=== PATIENT | male | born 1940 | race Caucasian/White ===

== ENCOUNTER 2017-06-07 21:00 | Emergency (ER) | payer MEDICARE, BC ==
[2017-06-07] MEDS ORDERED: traMADol 50 MG Tab ONE (21:30)
[2017-06-08 02:13] VITALS: BP 176/54
--- NOTE | 2017-06-08 07:14 | EDM.PDOC ---
ED HPI GENERAL MEDICAL PROBLEM - General Chief Complaint: ENT Problem Stated Complaint: BLEEDING FRON EXTRACTION Time Seen by Provider: 06/07/17 21:00 Source of Information: Reports: Patient, Family History Limitations: Reports: No Limitations - History of Present Illness INITIAL COMMENTS - FREE TEXT/NARRATIVE: This is a 77yo M here for continued bleeding from his 5 tooth extraction. He was on plavix and eliquis and was told to stop the plavix but continued his eliquis. Patient denies any light-headedness or faintness or other complaints. He does have gum tenderness. He has packing and has tried to pack the extracted gum area with continued bleeding. Duration: Hour(s): Location: Reports: Other (4 extracted teeth ) Severity: Mild Improves with: Reports: None Worsens with: Reports: Movement - Related Data Allergies Allergy/AdvReac Type Severity Reaction Status Date / Time Penicillins Allergy Severe Anaphylactic Verified 06/08/17 02:02 Shock vancomycin AdvReac Mild Hypertensio Verified 06/08/17 02:02 n Home Meds: Home Meds Montelukast Sodium [Singulair] 10 mg PO DAILY 07/30/13 [History] Nitroglycerin [Nitrostat] 0.4 mg SL ASDIRECTED PRN 07/30/13 [History] Ferrous Sulfate 325 mg PO DAILY 09/21/13 [History] Furosemide [Furosemide] 40 mg PO BID 09/21/13 [History] atorvaSTATin [Lipitor] 20 mg PO BEDTIME 09/21/13 [History] Calcium Carb/Magnesium Oxid/D3 [Calcium Magnesium + D] 1 each PO DAILY 12/25/14 [History] Cholecalciferol (Vitamin D3) [Vitamin D-3] 2,000 unit PO BID 12/25/14 [History] Potassium Citrate [Urocit-K] 99 meq PO DAILY 12/25/14 [History] Amiodarone [Cordarone] 200 mg PO DAILY 02/25/16 [History] Apixaban [Eliquis] 5 mg PO BID 02/25/16 [History] Aspirin [Ecotrin] 81 mg PO DAILY 02/25/16 [History] Hydrocodone/Acetaminophen [[place] 7.5-325] 1 tab PO Q4H PRN 02/25/16 [History] Pantoprazole [Protonix] 40 mg PO BID 02/25/16 [History] Albuterol Sulfate [Proair Respiclick] 90 mcg IH Q4H PRN 02/26/16 [History] Carvedilol [Coreg] 3.125 mg PO BID 02/26/16 [History] Cyanocobalamin (Vitamin B-12) [B-12] 500 mcg PO DAILY 02/26/16 [History] Metolazone [Zaroxolyn] 5 mg PO BID #10 tablet 02/26/16 [Rx] Niacin 1,000 mg PO DAILY 02/26/16 [History] Past Medical History HEENT History: Reports: Impaired Vision Cardiovascular History: Reports: Afib, Bypass, Cardiomyopathy, Heart Failure, High Cholesterol, Hypertension, [place], SOB on Exertion, Stents Respiratory History: Reports: COPD, Sleep Apnea, SOB Gastrointestinal History: Reports: GI Bleed Genitourinary History: Reports: UTI, Recurrent Endocrine/Metabolic History: Reports: Diabetes, Type II Hematologic History: Reports: Anemia, Blood Transfusion(s) Oncologic (Cancer) History: Reports: Other (See Below) Other Oncologic History: skin - Past Surgical History Cardiovascular Surgical History: Reports: Coronary Artery Stent GI Surgical History: Reports: Cholecystectomy, Colonoscopy, Hernia, Inguinal Social & Family History - Family History Family Medical History: Unobtainable - Tobacco Use Smoking Status *Q: Former Smoker Years of Tobacco use: 30 Used Tobacco, but Quit: Yes Month Tobacco Last Used: 2014 Second Hand Smoke Exposure: No - Caffeine Use Caffeine Use: Reports: None - Alcohol Use Days Per Week of Alcohol Use: 0 - Recreational Drug Use Recreational Drug Use: No - Living Situation & Occupation Living situation: Reports: Occupation: Retired ED ROS ENT - Review of Systems Review Of Systems: ROS reveals no pertinent complaints other than HPI. ED EXAM, ENT - Physical Exam Exam: See Below Exam Limited By: No Limitations General Appearance: Alert, WD/WN, No Apparent Distress Ears: Normal External Exam Mouth/Throat: Other (2 upper incisors extracted, 2 lower right back molars extracted and a fifth pre-molar extracted as well; bleeding slight ooze from 1 upper incisor minor; and right lower back 2 molar oozing slightly more) Respiratory/Chest: No Respiratory Distress Cardiovascular: Normal Peripheral Pulses Course - Vital Signs Last Recorded V/S: Last Vital Signs Temp 35.9 C 06/07/17 21:05 Pulse 71 06/07/17 21:05 Resp 16 06/07/17 21:05 BP 176/54 H 06/07/17 21:05 Pulse Ox 98 06/07/17 21:05 - Re-Assessments/Exams Free Text/Narrative Re-Assessment/Exam: right lower back 2 molars extraction areas packed with pressure and left lower pre-molar packed. Rechecked and rinsed and repacked. Rechecked with improved hemostasis Departure - Departure Time of Disposition: 22:00 Disposition: Home, Self-Care 01 Condition: Good Clinical Impression: Bleeding, On anticoagulant therapy H/O tooth extraction Qualifiers: Tooth loss class: unspecified tooth loss Qualified Code(s): K08.409 - Partial loss of teeth, unspecified cause, unspecified class - Discharge Information Referrals: PCP,None [Primary Care Provider] - Forms: ED Department Discharge Additional Instructions: Keep applied packing in place over night. Should bleeding worsen, return to be seen. Follow up with dentist as needed. Call with any questions.
== END 2017-06-07 22:25 | disposition home or self-care (01) ==
LOC: LB.ED 21:00
DX: K91.841 Postprocedural hemorrhage of a digestive system organ or structure following other procedure (principal); K08.409 Partial loss of teeth, unspecified cause, unspecified class; I11.0 Hypertensive heart disease with heart failure; I50.9 Heart failure, unspecified; E11.9 Type 2 diabetes mellitus without complications; E78.00 Pure hypercholesterolemia, unspecified; Z87.891 Personal history of nicotine dependence; Z79.82 Long term (current) use of aspirin; Z79.899 Other long term (current) drug therapy; Z98.890 Other specified postprocedural states; Z90.49 Acquired absence of other specified parts of digestive tract; Z88.0 Allergy status to penicillin; Z88.8 Allergy status to other drugs, medicaments and biological substances
CPT/HCPCS: 99282; 99283; A9270

== ENCOUNTER 2017-07-30 17:21 | Inpatient (IN) | payer MEDICARE, BC ==
--- NOTE | 2017-07-30 17:53 | EDM.PDOC ---
ED HPI GENERAL MEDICAL PROBLEM - General Chief Complaint: General Stated Complaint: WEAKNESS Time Seen by Provider: 07/30/17 17:30 Source of Information: Reports: Patient, Family History Limitations: Reports: No Limitations - History of Present Illness INITIAL COMMENTS - FREE TEXT/NARRATIVE: This is a 77yo M with sob since . Patient and recall having fever and sob all day and just sob on Tuesday. He states he was unable to get up and around very well and was going to call the ambulance on Tuesday but didn' t He states he feels better today but continues to have shortness of breath. Patient states his oxygen did drop at home in the 70-80's. His current oxygen saturation is 92-96% on room air. Patient states he does feel some chest pressure since . Overall he feels improved. Duration: Day(s):, Waxing/Waning Location: Reports: Chest Severity: Mild Improves with: Reports: None Worsens with: Reports: None Associated Symptoms: Reports: Fever/Chills, Loss of Appetite, Nausea/Vomiting, Shortness of Breath - Related Data Allergies Allergy/AdvReac Type Severity Reaction Status Date / Time Penicillins Allergy Severe Anaphylactic Verified 06/08/17 02:02 Shock vancomycin AdvReac Mild Hypertensio Verified 06/08/17 02:02 n Home Meds: Home Meds Montelukast Sodium [Singulair] 10 mg PO DAILY 07/30/13 [History] Nitroglycerin [Nitrostat] 0.4 mg SL ASDIRECTED PRN 07/30/13 [History] Ferrous Sulfate 325 mg PO DAILY 09/21/13 [History] Furosemide [Furosemide] 40 mg PO BID 09/21/13 [History] atorvaSTATin [Lipitor] 20 mg PO BEDTIME 09/21/13 [History] Calcium Carb/Magnesium Oxid/D3 [Calcium Magnesium + D] 1 each PO DAILY 12/25/14 [History] Cholecalciferol (Vitamin D3) [Vitamin D-3] 2,000 unit PO BID 12/25/14 [History] Potassium Citrate [Urocit-K] 99 meq PO DAILY 12/25/14 [History] Amiodarone [Cordarone] 200 mg PO DAILY 02/25/16 [History] Apixaban [Eliquis] 5 mg PO BID 02/25/16 [History] Aspirin [Ecotrin] 81 mg PO DAILY 02/25/16 [History] Hydrocodone/Acetaminophen [[place] 7.5-325] 1 tab PO Q4H PRN 02/25/16 [History] Pantoprazole [Protonix] 40 mg PO BID 02/25/16 [History] Albuterol Sulfate [Proair Respiclick] 90 mcg IH Q4H PRN 02/26/16 [History] Carvedilol [Coreg] 3.125 mg PO BID 02/26/16 [History] Cyanocobalamin (Vitamin B-12) [B-12] 500 mcg PO DAILY 02/26/16 [History] Metolazone [Zaroxolyn] 5 mg PO BID #10 tablet 02/26/16 [Rx] Niacin 1,000 mg PO DAILY 02/26/16 [History] Past Medical History HEENT History: Reports: Impaired Vision Cardiovascular History: Reports: Afib, Bypass, Cardiomyopathy, Heart Failure, High Cholesterol, Hypertension, [place], SOB on Exertion, Stents Respiratory History: Reports: COPD, Sleep Apnea, SOB Gastrointestinal History: Reports: GI Bleed Genitourinary History: Reports: UTI, Recurrent Endocrine/Metabolic History: Reports: Diabetes, Type II Hematologic History: Reports: Anemia, Blood Transfusion(s) Oncologic (Cancer) History: Reports: Other (See Below) Other Oncologic History: skin - Past Surgical History Cardiovascular Surgical History: Reports: Coronary Artery Stent GI Surgical History: Reports: Cholecystectomy, Colonoscopy, Hernia, Inguinal Social & Family History - Family History Family Medical History: Unobtainable - Tobacco Use Smoking Status *Q: Former Smoker Years of Tobacco use: 30 Used Tobacco, but Quit: Yes Month Tobacco Last Used: 2014 Second Hand Smoke Exposure: No - Caffeine Use Caffeine Use: Reports: None - Alcohol Use Days Per Week of Alcohol Use: 0 - Recreational Drug Use Recreational Drug Use: No - Living Situation & Occupation Living situation: Reports: Occupation: Retired ED ROS GENERAL - Review of Systems Review Of Systems: ROS reveals no pertinent complaints other than HPI. ED EXAM, GENERAL - Physical Exam Exam: See Below Exam Limited By: No Limitations General Appearance: Alert, WD/WN, No Apparent Distress Eye Exam: Bilateral Eye: EOMI Ears: Normal External Exam Nose: Normal Inspection, Normal Mucosa, No Blood Throat/Mouth: Normal Inspection, Normal Lips Head: Atraumatic, Normocephalic Neck: Normal Inspection, Supple, Non-Tender, Full Range of Motion Respiratory/Chest: No Respiratory Distress, Lungs Clear, Decreased Breath Sounds Cardiovascular: Regular Rate, Rhythm, Systolic Murmur GI/Abdominal: Normal Bowel Sounds Back Exam: Normal Inspection Extremities: Normal Inspection Neurological: Alert, Oriented, CN II-XII Intact Course - Vital Signs Last Recorded V/S: Last Vital Signs Temp 37.2 C 07/30/17 17:41 Pulse 88 07/30/17 17:41 Resp 20 07/30/17 17:41 BP 141/54 H 07/30/17 17:41 Pulse Ox 94 L 07/30/17 17:41 - Orders/Labs/Meds Orders: Active Orders 24 hr Category Date Time Status Patient Status [ADT] Routine ADT 07/30/17 18:54 Ordered EKG Documentation Completion [RC] ASDIRECTED Care 07/30/17 17:31 Active Oxygen Therapy [RC] PRN Care 07/30/17 18:54 Ordered Up ad Coby [RC] ASDIRECTED Care 07/30/17 18:54 Ordered VTE/DVT Education [RC] Per Unit Routine Care 07/30/17 18:54 Ordered Vital Signs [RC] Q4H Care 07/30/17 18:54 Ordered Regular Diet [DIET] Diet 07/30/17 Breakfast Ordered Chest 1V Frontal [CR] Stat Exams 07/30/17 17:30 Taken CBC WITH AUTO DIFF [HEME] AM Lab 07/31/17 05:11 Ordered COMPREHENSIVE METABOLIC PN,CMP [CHEM] AM Lab 07/31/17 05:11 Ordered CULTURE BLOOD [BC] Stat Lab 07/30/17 18:20 Ordered CULTURE BLOOD [BC] Stat Lab 07/30/17 18:21 Ordered CULTURE URINE [RM] Stat Lab 07/30/17 18:21 Uncollected LACTIC ACID [CHEM] AM Lab 07/31/17 05:11 Ordered TROPONIN I [CHEM] AM Lab 07/31/17 05:11 Ordered Calcium Carb/Magnesium Oxid/D3 [Calcium Magnesium + D] Med 07/31/17 08:00 Ordered 1 each PO DAILY Carvedilol [Coreg] Med 07/30/17 20:00 Ordered 3.125 mg PO BID Cholecalciferol (Vitamin D3) [Vitamin D3] Med 07/30/17 20:00 Ordered 2,000 unit PO BID Clindamycin Phosphate [Cleocin] 600 mg Med 07/30/17 19:00 Ordered Dextrose 5% in Water 50 ml IV Q8H Clopidogrel [Plavix] Med 07/31/17 08:00 Ordered 75 mg PO DAILY Cyanocobalamin (Vitamin B-12) [B-12] Med 07/31/17 08:00 Ordered 500 mcg PO DAILY Ferrous Sulfate Med 07/31/17 08:00 Ordered 325 mg PO DAILY Furosemide [Lasix] Med 07/30/17 20:00 Ordered 80 mg PO BID Hydrocodone/Acetaminophen [[place] 7.5-325] Med 07/30/17 19:08 Ordered 1 tab PO Q4H PRN Metolazone [Zaroxolyn] Med 07/30/17 20:00 Ordered 5 mg PO BID Montelukast [Singulair] Med 07/31/17 08:00 Ordered 10 mg PO DAILY Niacin [Niacin] Med 07/31/17 08:00 Ordered 1,000 mg PO DAILY Nitroglycerin [Nitrostat] Med 07/30/17 19:08 Ordered 0.4 mg SL ASDIRECTED PRN Non-Formulary Medication [NF Drug] Med 07/30/17 20:00 Ordered 5 each PO BID Pantoprazole [ProTONIX] Med 07/30/17 20:00 Ordered 40 mg PO BID Potassium Citrate [Urocit-K] Med 07/31/17 08:00 Ordered 99 meq PO DAILY Sodium Chloride 0.9% [Normal Saline] 1,000 ml Med 07/30/17 19:00 Ordered IV ASDIRECTED Sodium Chloride 0.9% [Saline Flush] Med 07/30/17 18:57 Ordered 10 ml FLUSH ASDIRECTED PRN atorvaSTATin [Lipitor] Med 07/30/17 20:00 Ordered 20 mg PO BEDTIME Peripheral IV Insertion Adult [OM.PC] Routine Oth 07/30/17 18:57 Ordered EKG 12 Lead [EK] Routine Ther 07/30/17 17:30 Ordered Medication Orders Atorvastatin Calcium (Lipitor) 20 mg PO BEDTIME [facility] Carvedilol (Coreg) 3.125 mg PO BID [facility] Ferrous Sulfate (Ferrous Sulfate) 325 mg PO DAILY [facility] Furosemide (Lasix) 80 mg PO BID [facility] Sodium Chloride (Normal Saline) 1,000 mls @ 0 mls/hr IV ASDIRECTED [facility] PRN Reason: KVO Clindamycin Phosphate 600 mg/ (Dextrose/Water) 54 mls @ 150 mls/hr IV Q8H [facility] Metolazone (Zaroxolyn) 5 mg PO BID [facility] Montelukast Sodium (Singulair) 10 mg PO DAILY [facility] Nitroglycerin (Nitrostat) 0.4 mg SL ASDIRECTED PRN PRN Reason: Pain Non-Formulary Medication (Calcium Carb/Magnesium Oxid/D3 [Calcium Magnesium + D] ) 1 each PO DAILY [facility] Non-Formulary Medication (Cholecalciferol (Vitamin D3) [Vitamin D3]) 2,000 unit PO BID [facility] Non-Formulary Medication (Cyanocobalamin (Vitamin B-12) [B-12]) 500 mcg PO DAILY [facility] Non-Formulary Medication (Hydrocodone/Acetaminophen [[place] 7.5-325]) 1 tab PO Q4H PRN PRN Reason: Pain Non-Formulary Medication (Niacin [Niacin]) 1,000 mg PO DAILY [facility] Non-Formulary Medication (Potassium Citrate [Urocit-K]) 99 meq PO DAILY [facility] Pantoprazole Sodium (Protonix) 40 mg PO BID [facility] Sodium Chloride (Saline Flush) 10 ml FLUSH ASDIRECTED PRN PRN Reason: Keep Vein Open Labs: Laboratory Tests 07/30/17 07/30/17 07/30/17 Range/Units 16:32 17:50 17:50 WBC 26.8 H* D (4.0-11.0) K/uL RBC 3.75 L (4.50-6.50) M/uL Hgb 10.0 L (13.0-18.0) g/dL Hct 32.2 L (40.0-54.0) % MCV 86 (76-96) fL MCH 26.7 L (27.0-32.0) pg MCHC 31.1 (31.0-35.0) g/dL RDW 21.5 H (11.0-16.0) % Plt Count 266 D (150-400) K/uL MPV 9.8 (6.0-10.0) fL Neut % (Auto) 83.6 H (45.0-70.0) % Lymph % (Auto) 4.3 L (20.0-40.0) % [place] % (Auto) 11.9 H (3.0-10.0) % Eos % (Auto) 0.0 L (1.0-5.0) % Baso % (Auto) 0.2 (0.0-0.5) % Neut # (Auto) 22.39 H (2.00-7.50) K/uL Lymph # (Auto) 1.15 L (1.50-4.00) K/uL [place] # (Auto) 3.18 H (0.20-0.80) K/uL Eos # (Auto) 0.01 L (0.04-0.40) K/uL Baso # (Auto) 0.06 (0.02-0.10) K/uL PT (9.0-11.5) sec INR (1.0-3.5) Sodium 136 (136-145) mmol/L Potassium 3.5 D (3.5-5.1) mmol/L Chloride 96 L (98-107) mmol/L Carbon Dioxide 30.4 (21.0-32.0) mmol/L Anion Gap 13.1 (5.0-15.0) mmol/L BUN 22 (8-26) mg/dL Creatinine 1.55 H (0.70-1.30) mg/dL Est Cr Clr Drug Dosing TNP Estimated GFR (MDRD) 44 L (>60) MLS/MIN BUN/Creatinine Ratio 14.2 (6-25) Glucose 152 H D (74-100) mg/dL POC Glucose 157 H (74-110) mg/dL Lactic Acid (0.90-1.70) mmol/L Calcium 8.9 (8.5-10.1) mg/dL Troponin I 0.486 H* D (0.000-0.060) ng/mL B-Natriuretic Peptide 4288 H D (0-450) pg/mL Urine Color Urine Appearance (CLEAR) Urine pH (5.0-8.0) Ur Specific [place] (1.003-1.030) Urine Protein (NEGATIVE) mg/dL Urine Glucose (UA) (NEGATIVE) mg/dL Urine Ketones (NEGATIVE) mg/dL Urine Occult Blood (NEGATIVE) Urine Nitrite (NEGATIVE) Urine Bilirubin (NEGATIVE) Urine Urobilinogen (0.2-1.0) E.U./dL Ur Leukocyte Esterase (NEGATIVE) Urine RBC /HPF Urine WBC /HPF Urine WBC Clumps /HPF Ur Squamous Epith Cells /HPF Urine Bacteria /HPF 07/30/17 07/30/17 07/30/17 Range/Units 17:50 17:50 18:20 WBC (4.0-11.0) K/uL RBC (4.50-6.50) M/uL Hgb (13.0-18.0) g/dL Hct (40.0-54.0) % MCV (76-96) fL MCH (27.0-32.0) pg MCHC (31.0-35.0) g/dL RDW (11.0-16.0) % Plt Count (150-400) K/uL MPV (6.0-10.0) fL Neut % (Auto) (45.0-70.0) % Lymph % (Auto) (20.0-40.0) % [place] % (Auto) (3.0-10.0) % Eos % (Auto) (1.0-5.0) % Baso % (Auto) (0.0-0.5) % Neut # (Auto) (2.00-7.50) K/uL Lymph # (Auto) (1.50-4.00) K/uL [place] # (Auto) (0.20-0.80) K/uL Eos # (Auto) (0.04-0.40) K/uL Baso # (Auto) (0.02-0.10) K/uL PT 11.2 D (9.0-11.5) sec INR 1.1 D (1.0-3.5) Sodium (136-145) mmol/L Potassium (3.5-5.1) mmol/L Chloride (98-107) mmol/L Carbon Dioxide (21.0-32.0) mmol/L Anion Gap (5.0-15.0) mmol/L BUN (8-26) mg/dL Creatinine (0.70-1.30) mg/dL Est Cr Clr Drug Dosing Estimated GFR (MDRD) (>60) MLS/MIN BUN/Creatinine Ratio (6-25) Glucose (74-100) mg/dL POC Glucose (74-110) mg/dL Lactic Acid 1.97 H (0.90-1.70) mmol/L Calcium (8.5-10.1) mg/dL Troponin I (0.000-0.060) ng/mL B-Natriuretic Peptide (0-450) pg/mL Urine Color Yellow Urine Appearance Clear (CLEAR) Urine pH 5.5 (5.0-8.0) Ur Specific [place] 1.015 (1.003-1.030) Urine Protein 30 H (NEGATIVE) mg/dL Urine Glucose (UA) Negative (NEGATIVE) mg/dL Urine Ketones Negative (NEGATIVE) mg/dL Urine Occult Blood Small H (NEGATIVE) Urine Nitrite Negative (NEGATIVE) Urine Bilirubin Negative (NEGATIVE) Urine Urobilinogen 0.2 (0.2-1.0) E.U./dL Ur Leukocyte Esterase Moderate H (NEGATIVE) Urine RBC Not seen /HPF Urine WBC Semi-packed H /HPF Urine WBC Clumps Few /HPF Ur Squamous Epith Cells Few /HPF Urine Bacteria Few /HPF Meds: Medications Generic Name Dose Route Start Last Admin Trade Name Freq PRN Reason Stop Dose Admin Atorvastatin Calcium 20 mg 07/30/17 20:00 Lipitor PO BEDTIME [facility] Carvedilol 3.125 mg 07/30/17 20:00 Coreg PO BID [facility] Ferrous Sulfate 325 mg 07/31/17 08:00 Ferrous Sulfate PO DAILY [facility] Furosemide 80 mg 07/30/17 20:00 Lasix PO BID [facility] Sodium Chloride 1,000 mls @ 0 mls/hr 07/30/17 19:00 Normal Saline IV ASDIRECTED [facility] KVO Clindamycin Phosphate 600 mg/ 54 mls @ 150 mls/hr 07/30/17 19:00 Dextrose/Water IV Q8H [facility] Metolazone 5 mg 07/30/17 20:00 Zaroxolyn PO BID [facility] Montelukast Sodium 10 mg 07/31/17 08:00 Singulair PO DAILY [facility] Nitroglycerin 0.4 mg 07/30/17 19:08 Nitrostat SL ASDIRECTED PRN Pain Non-Formulary Medication 1 each 07/31/17 08:00 Calcium Carb/Magnesium Oxid/D3 [Calcium Magnesium + D] PO DAILY [facility] Non-Formulary Medication 2,000 unit 07/30/17 20:00 Cholecalciferol (Vitamin D3) [Vitamin D3] PO BID [facility] Non-Formulary Medication 500 mcg 07/31/17 08:00 Cyanocobalamin (Vitamin B-12) [B-12] PO DAILY [facility] Non-Formulary Medication 1 tab 07/30/17 19:08 Hydrocodone/Acetaminophen [[place] 7.5-325] PO Q4H PRN Pain Non-Formulary Medication 1,000 mg 07/31/17 08:00 Niacin [Niacin] PO DAILY [facility] Non-Formulary Medication 99 meq 07/31/17 08:00 Potassium Citrate [Urocit-K] PO DAILY [facility] Pantoprazole Sodium 40 mg 07/30/17 20:00 Protonix PO BID [facility] Sodium Chloride 10 ml 07/30/17 18:57 Saline Flush FLUSH ASDIRECTED PRN Keep Vein Open Departure - Departure Time of Disposition: 19:30 Disposition: Admitted As Inpatient 66 Condition: Fair Clinical Impression: Shortness of breath, CHF, Congestive heart failure Leukocytosis Qualifiers: Leukocytosis type: other Qualified Code(s): D72.828 - Other elevated white blood cell count - Discharge Information Forms: ED Department Discharge - Problem List & Annotations (1) On anticoagulant therapy SNOMED Code(s): 266264670 Code(s): Z79.01 - [employer] (CURRENT) USE OF ANTICOAGULANTS Status: Chronic Priority: Medium Current Visit: Yes (2) Afib, Atrial fibrillation SNOMED Code(s): 19956327 Code(s): I48.91 - UNSPECIFIED ATRIAL FIBRILLATION Status: Chronic Priority: High Current Visit: Yes (3) HTN, Benign essential hypertension SNOMED Code(s): 8007544 Code(s): I10 - ESSENTIAL (PRIMARY) HYPERTENSION Status: Chronic Priority : Low Current Visit: Yes (4) Type II diabetes mellitus without complication SNOMED Code(s): 352041945 Code(s): E11.9 - TYPE 2 DIABETES MELLITUS WITHOUT COMPLICATIONS Status: Chronic Priority: Low Current Visit: Yes (5) Shortness of breath SNOMED Code(s): 110307466 Code(s): R06.02 - SHORTNESS OF BREATH Status: Acute Priority: High Current Visit: Yes (6) Elevated troponin SNOMED Code(s): 354078705, 778832650 Code(s): R79.89 - OTHER SPECIFIED ABNORMAL FINDINGS OF BLOOD CHEMISTRY Status: Acute Priority: High Current Visit: Yes (7) CHF, Congestive heart failure SNOMED Code(s): 41280805 Code(s): I50.9 - HEART FAILURE, UNSPECIFIED Status: Chronic Priority: High Current Visit: Yes (8) Leukocytosis SNOMED Code(s): 569467359 Code(s): D72.829 - ELEVATED WHITE BLOOD CELL COUNT, UNSPECIFIED Status: Acute Priority: High Current Visit: Yes Qualifiers: Leukocytosis type: other Qualified Code(s): D72.828 - Other elevated white blood cell count - Problem List Review Problem List Initiated/Reviewed/Updated: Yes - My Orders Last 24 Hours: My Active Orders 07/30/17 17:30 Chest 1V Frontal [CR] Stat EKG 12 Lead [EK] Routine 07/30/17 17:31 EKG Documentation Completion [RC] ASDIRECTED 07/30/17 18:20 CULTURE BLOOD [BC] Stat 07/30/17 18:21 CULTURE BLOOD [BC] Stat CULTURE URINE [RM] Stat 07/30/17 18:54 Patient Status [ADT] Routine Oxygen Therapy [RC] PRN Up ad Coby [RC] ASDIRECTED VTE/DVT Education [RC] Per Unit Routine Vital Signs [RC] Q4H 07/30/17 18:57 Sodium Chloride 0.9% [Saline Flush] 10 ml FLUSH ASDIRECTED PRN Peripheral IV Insertion Adult [OM.PC] Routine 07/30/17 19:00 Clindamycin Phosphate [Cleocin] 600 mg Dextrose 5% in Water 50 ml IV Q8H Sodium Chloride 0.9% [Normal Saline] 1,000 ml IV ASDIRECTED 07/30/17 19:08 Hydrocodone/Acetaminophen [[place] 7.5-325] 1 tab PO Q4H PRN Nitroglycerin [Nitrostat] 0.4 mg SL ASDIRECTED PRN 07/30/17 20:00 Carvedilol [Coreg] 3.125 mg PO BID Cholecalciferol (Vitamin D3) [Vitamin D3] 2,000 unit PO BID Furosemide [Lasix] 80 mg PO BID Metolazone [Zaroxolyn] 5 mg PO BID Non-Formulary Medication [NF Drug] 5 each PO BID Pantoprazole [ProTONIX] 40 mg PO BID atorvaSTATin [Lipitor] 20 mg PO BEDTIME 07/30/17 Breakfast Regular Diet [DIET] 07/31/17 05:11 CBC WITH AUTO DIFF [HEME] AM COMPREHENSIVE METABOLIC PN,CMP [CHEM] AM LACTIC ACID [CHEM] AM TROPONIN I [CHEM] AM 07/31/17 08:00 Calcium Carb/Magnesium Oxid/D3 [Calcium Magnesium + D] 1 each PO DAILY Clopidogrel [Plavix] 75 mg PO DAILY Cyanocobalamin (Vitamin B-12) [B-12] 500 mcg PO DAILY Ferrous Sulfate 325 mg PO DAILY Montelukast [Singulair] 10 mg PO DAILY Niacin [Niacin] 1,000 mg PO DAILY Potassium Citrate [Urocit-K] 99 meq PO DAILY - Assessment/Plan Last 24 Hours: My Active Orders 07/30/17 17:30 Chest 1V Frontal [CR] Stat EKG 12 Lead [EK] Routine 07/30/17 17:31 EKG Documentation Completion [RC] ASDIRECTED 07/30/17 18:20 CULTURE BLOOD [BC] Stat 07/30/17 18:21 CULTURE BLOOD [BC] Stat CULTURE URINE [RM] Stat 07/30/17 18:54 Patient Status [ADT] Routine Oxygen Therapy [RC] PRN Up ad [place]y [RC] ASDIRECTED VTE/DVT Education [RC] Per Unit Routine Vital Signs [RC] Q4H 07/30/17 18:57 Sodium Chloride 0.9% [Saline Flush] 10 ml FLUSH ASDIRECTED PRN Peripheral IV Insertion Adult [OM.PC] Routine 07/30/17 19:00 Clindamycin Phosphate [Cleocin] 600 mg Dextrose 5% in Water 50 ml IV Q8H Sodium Chloride 0.9% [Normal Saline] 1,000 ml IV ASDIRECTED 07/30/17 19:08 Hydrocodone/Acetaminophen [[place] 7.5-325] 1 tab PO Q4H PRN Nitroglycerin [Nitrostat] 0.4 mg SL ASDIRECTED PRN 07/30/17 20:00 Carvedilol [Coreg] 3.125 mg PO BID Cholecalciferol (Vitamin D3) [Vitamin D3] 2,000 unit PO BID Furosemide [Lasix] 80 mg PO BID Metolazone [Zaroxolyn] 5 mg PO BID Non-Formulary Medication [NF Drug] 5 each PO BID Pantoprazole [ProTONIX] 40 mg PO BID atorvaSTATin [Lipitor] 20 mg PO BEDTIME 07/30/17 Breakfast Regular Diet [DIET] 07/31/17 05:11 CBC WITH AUTO DIFF [HEME] AM COMPREHENSIVE METABOLIC PN,CMP [CHEM] AM LACTIC ACID [CHEM] AM TROPONIN I [CHEM] AM 07/31/17 08:00 Calcium Carb/Magnesium Oxid/D3 [Calcium Magnesium + D] 1 each PO DAILY Clopidogrel [Plavix] 75 mg PO DAILY Cyanocobalamin (Vitamin B-12) [B-12] 500 mcg PO DAILY Ferrous Sulfate 325 mg PO DAILY Montelukast [Singulair] 10 mg PO DAILY Niacin [Niacin] 1,000 mg PO DAILY Potassium Citrate [Urocit-K] 99 meq PO DAILY Plan: Patient will be admitted to CCU for monitoring. Telemetry, IV antibiotics, and f /u labs in am. Leukocytosis - started on clindamycin - allergy to Vanco and PCN. CHF - will monitor ins and out - continue lasix as directed. Elevated trop - repeat in am for trend- lowest Trop value in 4 years. HTN - controlled - recheck vitals. DM - continue current medications and bedside checks.
[2017-07-30] MEDS ORDERED: Sodium Chloride 0.9% 10 ML Syringe FLUSH PRN (18:57)
[2017-07-30] MEDS ORDERED: Sodium Chloride 0.9% 1,000 ML IV SCH (19:00)
[2017-07-30] MEDS ORDERED: Nitroglycerin 0.4 MG Tab.SL SL PRN (19:08)
[2017-07-30] MEDS ORDERED: Acetaminophen/HYDROcodone 325-5 MG Tab PO PRN (19:08)
[2017-07-30] MEDS: Clindamycin Phosphate 600 MG in Dextrose 5% in Water 50 ML IV SCH ×2 (20:10)
[2017-07-30] MEDS: Carvedilol 3.125 MG Tab PO SCH (22:37)
[2017-07-30] MEDS: Non-Formulary Medication 1 Each (Cholecalciferol (Vitamin D3) [Vitamin D3] 2,000 UNIT) PO SCH (22:38)
[2017-07-30] MEDS: Furosemide 40 MG Tab PO SCH (22:38)
[2017-07-30] MEDS: atorvaSTATin 20 MG Tab PO SCH (22:38)
[2017-07-30] MEDS: Non-Formulary Medication 1 Each PO SCH (22:38)
[2017-07-30] MEDS: Pantoprazole 40 MG Tab.CR PO SCH (22:39)
[2017-07-30] MEDS: Metolazone 5 MG Tab PO SCH (22:39)
[2017-07-31] MEDS: Acetaminophen 325 MG Tab PO PRN ×3 (02:03→17:39)
[2017-07-31] MEDS: Clindamycin Phosphate 600 MG in Dextrose 5% in Water 50 ML IV SCH ×6 (03:40→19:38)
[2017-07-31] MEDS: Carvedilol 3.125 MG Tab PO SCH ×2 (07:58→19:40)
[2017-07-31] MEDS: Montelukast 10 MG Tab PO SCH (07:59)
[2017-07-31] MEDS: Furosemide 40 MG Tab PO SCH ×2 (08:00→19:40)
[2017-07-31] MEDS: Ferrous Sulfate 325 MG Tab PO SCH (08:00)
[2017-07-31] MEDS: Clopidogrel 75 MG Tab PO SCH (08:01)
[2017-07-31] MEDS: Metolazone 5 MG Tab PO SCH ×2 (08:04→19:40)
[2017-07-31] MEDS: Pantoprazole 40 MG Tab.CR PO SCH ×2 (08:05→19:41)
[2017-07-31] MEDS: Cholecalciferol (Vitamin D3) 2,000 Unit Cap ONE ×2 (08:08→19:39)
[2017-07-31] MEDS: Cyanocobalamin (Vitamin B12) 1,000 MCG Tab ONE (08:09)
[2017-07-31] MEDS: Non-Formulary Medication 1 Each PO SCH ×2 (08:13→19:41)
[2017-07-31] MEDS: CYANOCOBALAMIN 500 MCG PO SCH (08:13)
[2017-07-31] MEDS: Non-Formulary Medication 1 Each (Cholecalciferol (Vitamin D3) [Vitamin D3] 2,000 UNIT) PO SCH (08:16)
[2017-07-31] MEDS: POTASSIUM CITRATE PO SCH (08:17)
[2017-07-31] MEDS: NIACIN 1000 MG PO SCH (08:18)
--- NOTE | 2017-07-31 09:20 | PCM.PN ---
- General Info Date of Service: 07/31/17 Functional Status: Reports: Tolerating Diet, Ambulating - Review of Systems General: Reports: Fever, Chills HEENT: Reports: No Symptoms Pulmonary: Reports: Shortness of Breath (chronic) Cardiovascular: Reports: No Symptoms Gastrointestinal: Reports: No Symptoms Musculoskeletal: Reports: No Symptoms Skin: Reports: No Symptoms Neurological: Reports: No Symptoms - Patient Data Vitals - Most Recent: Last Vital Signs Temp 36.1 C 07/31/17 05:12 Pulse 84 07/31/17 07:58 Resp 20 07/31/17 02:00 BP 147/51 H 07/31/17 07:58 Pulse Ox 100 07/31/17 05:12 Weight - Most Recent: 94.256 kg I&O - Last 24 Hours: Intake & Output 07/30/17 07/31/17 07/31/17 22:59 06:59 14:59 Intake Total 84 Output Total 200 Balance -116 Lab Results Last 24 Hours: Laboratory Results - last 24 hr 07/31/17 07/31/17 07/31/17 Range/Units 07:27 08:10 08:10 WBC 17.1 H D (4.0-11.0) K/uL RBC 3.72 L (4.50-6.50) M/uL Hgb 9.9 L (13.0-18.0) g/dL Hct 32.9 L (40.0-54.0) % MCV 88 (76-96) fL MCH 26.6 L (27.0-32.0) pg MCHC 30.1 L (31.0-35.0) g/dL RDW 21.4 H (11.0-16.0) % Plt Count 242 (150-400) K/uL MPV 10.3 H (6.0-10.0) fL Neut % (Auto) 86.0 H (45.0-70.0) % Lymph % (Auto) 5.7 L (20.0-40.0) % [place] % (Auto) 8.0 (3.0-10.0) % Eos % (Auto) 0.1 L (1.0-5.0) % Baso % (Auto) 0.2 (0.0-0.5) % Neut # (Auto) 14.70 H (2.00-7.50) K/uL Lymph # (Auto) 0.97 L (1.50-4.00) K/uL [place] # (Auto) 1.36 H (0.20-0.80) K/uL Eos # (Auto) 0.01 L (0.04-0.40) K/uL Baso # (Auto) 0.03 (0.02-0.10) K/uL Sodium 139 (136-145) mmol/L Potassium 3.5 (3.5-5.1) mmol/L Chloride 99 (98-107) mmol/L Carbon Dioxide 35.3 H (21.0-32.0) mmol/L Anion Gap 8.2 (5.0-15.0) mmol/L BUN 21 (8-26) mg/dL Creatinine 1.49 H (0.70-1.30) mg/dL Est Cr Clr Drug Dosing TNP Estimated GFR (MDRD) 46 L (>60) MLS/MIN BUN/Creatinine Ratio 14.1 (6-25) Glucose 131 H (74-100) mg/dL POC Glucose 120 H (74-110) mg/dL Lactic Acid (0.90-1.70) mmol/L Calcium 8.8 (8.5-10.1) mg/dL Total Bilirubin 0.5 (0.0-1.0) mg/dL AST 21 (15-37) U/L ALT 28 (12-78) U/L Alkaline Phosphatase 53 (46-116) U/L Troponin I 0.431 H* (0.000-0.060) ng/mL Total Protein 6.5 (6.4-8.2) g/dL Albumin 3.1 L (3.4-5.0) g/dL Globulin 3.4 (2.2-4.2) g/dL Albumin/Globulin Ratio 0.9 (0.8-2.0) 07/31/17 Range/Units 08:10 WBC (4.0-11.0) K/uL RBC (4.50-6.50) M/uL Hgb (13.0-18.0) g/dL Hct (40.0-54.0) % MCV (76-96) fL MCH (27.0-32.0) pg MCHC (31.0-35.0) g/dL RDW (11.0-16.0) % Plt Count (150-400) K/uL MPV (6.0-10.0) fL Neut % (Auto) (45.0-70.0) % Lymph % (Auto) (20.0-40.0) % [place] % (Auto) (3.0-10.0) % Eos % (Auto) (1.0-5.0) % Baso % (Auto) (0.0-0.5) % Neut # (Auto) (2.00-7.50) K/uL Lymph # (Auto) (1.50-4.00) K/uL [place] # (Auto) (0.20-0.80) K/uL Eos # (Auto) (0.04-0.40) K/uL Baso # (Auto) (0.02-0.10) K/uL Sodium (136-145) mmol/L Potassium (3.5-5.1) mmol/L Chloride (98-107) mmol/L Carbon Dioxide (21.0-32.0) mmol/L Anion Gap (5.0-15.0) mmol/L BUN (8-26) mg/dL Creatinine (0.70-1.30) mg/dL Est Cr Clr Drug Dosing Estimated GFR (MDRD) (>60) MLS/MIN BUN/Creatinine Ratio (6-25) Glucose (74-100) mg/dL POC Glucose (74-110) mg/dL Lactic Acid 1.68 (0.90-1.70) mmol/L Calcium (8.5-10.1) mg/dL Total Bilirubin (0.0-1.0) mg/dL AST (15-37) U/L ALT (12-78) U/L Alkaline Phosphatase (46-116) U/L Troponin I (0.000-0.060) ng/mL Total Protein (6.4-8.2) g/dL Albumin (3.4-5.0) g/dL Globulin (2.2-4.2) g/dL Albumin/Globulin Ratio (0.8-2.0) Med Orders - Current: Current Medications Acetaminophen (Tylenol) 650 mg PO Q6H PRN PRN Reason: Fever Last Admin: 07/31/17 02:03 Dose: 650 mg Atorvastatin Calcium (Lipitor) 20 mg PO BEDTIME [facility] Last Admin: 07/30/17 22:38 Dose: Not Given Carvedilol (Coreg) 3.125 mg PO BID [facility] Last Admin: 07/31/17 07:58 Dose: 3.125 mg Clopidogrel Bisulfate (Plavix) 75 mg PO DAILY [facility] Last Admin: 07/31/17 08:01 Dose: 75 mg Ferrous Sulfate (Ferrous Sulfate) 325 mg PO DAILY [facility] Last Admin: 07/31/17 08:00 Dose: 325 mg Furosemide (Lasix) 80 mg PO BID [facility] Last Admin: 07/31/17 08:00 Dose: 80 mg Sodium Chloride (Normal Saline) 1,000 mls @ 0 mls/hr IV ASDIRECTED [facility] PRN Reason: KVO Clindamycin Phosphate 600 mg/ (Dextrose/Water) 54 mls @ 150 mls/hr IV Q8H [facility] Last Admin: 07/31/17 03:40 Dose: 150 mls/hr Metolazone (Zaroxolyn) 5 mg PO BID [facility] Last Admin: 07/31/17 08:04 Dose: 5 mg Montelukast Sodium (Singulair) 10 mg PO DAILY [facility] Last Admin: 07/31/17 07:59 Dose: 10 mg Nitroglycerin (Nitrostat) 0.4 mg SL ASDIRECTED PRN PRN Reason: Pain Non-Formulary Medication (Calcium Carb/Magnesium Oxid/D3 [Calcium Magnesium + D] ) 1 each PO DAILY [facility] Last Admin: 07/31/17 08:15 Dose: 1 each Non-Formulary Medication (Cholecalciferol (Vitamin D3) [Vitamin D3]) 2,000 unit PO BID [facility] Last Admin: 07/31/17 08:16 Dose: 2,000 unit Non-Formulary Medication (Cyanocobalamin (Vitamin B-12) [B-12]) 500 mcg PO DAILY [facility] Last Admin: 07/31/17 08:13 Dose: 500 mcg Non-Formulary Medication (Hydrocodone/Acetaminophen [[place] 7.5-325]) 1 tab PO Q4H PRN PRN Reason: Pain Non-Formulary Medication (Niacin [Niacin]) 1,000 mg PO DAILY [facility] Last Admin: 07/31/17 08:18 Dose: 1,000 mg Non-Formulary Medication (Potassium Citrate [Urocit-K]) 99 meq PO DAILY [facility] Last Admin: 07/31/17 08:17 Dose: 99 meq Non-Formulary Medication (Nf Drug) 5 each PO BID [facility] Last Admin: 07/31/17 08:13 Dose: 5 each Pantoprazole Sodium (Protonix) 40 mg PO BID [facility] Last Admin: 07/31/17 08:05 Dose: 40 mg Sodium Chloride (Saline Flush) 10 ml FLUSH ASDIRECTED PRN PRN Reason: Keep Vein Open Discontinued Medications Cholecalciferol (Vitamin D3) Confirm Administered Dose 2,000 unit .ROUTE .STK- MED ONE Stop: 07/31/17 07:47 Last Admin: 07/31/17 08:08 Dose: Not Given Cyanocobalamin (Vitamin B12) Confirm Administered Dose 1,000 mcg .ROUTE .STK- MED ONE Stop: 07/31/17 07:47 Last Admin: 07/31/17 08:09 Dose: Not Given - Exam General: Alert, Oriented, Cooperative HEENT: Pupils Equal Neck: Supple Lungs: Decreased Breath Sounds Cardiovascular: Irregular Rhythm GI/Abdominal Exam: Normal Bowel Sounds Extremities: Normal Inspection Skin: Warm, Dry, Intact - Problem List & Annotations (1) On anticoagulant therapy SNOMED Code(s): 013120499 Code(s): Z79.01 - CARE HOME (CURRENT) USE OF ANTICOAGULANTS Status: Chronic Priority: Medium Current Visit: Yes (2) Afib, Atrial fibrillation SNOMED Code(s): 64485962 Code(s): I48.91 - UNSPECIFIED ATRIAL FIBRILLATION Status: Chronic Priority: High Current Visit: Yes (3) HTN, Benign essential hypertension SNOMED Code(s): 9661642 Code(s): I10 - ESSENTIAL (PRIMARY) HYPERTENSION Status: Chronic Priority : Low Current Visit: Yes (4) Type II diabetes mellitus without complication SNOMED Code(s): 545240874 Code(s): E11.9 - TYPE 2 DIABETES MELLITUS WITHOUT COMPLICATIONS Status: Chronic Priority: Low Current Visit: Yes (5) Shortness of breath SNOMED Code(s): 891891742 Code(s): R06.02 - SHORTNESS OF BREATH Status: Acute Priority: High Current Visit: Yes (6) Elevated troponin SNOMED Code(s): 944235546, 855828294 Code(s): R79.89 - OTHER SPECIFIED ABNORMAL FINDINGS OF BLOOD CHEMISTRY Status: Acute Priority: High Current Visit: Yes (7) CHF, Congestive heart failure SNOMED Code(s): 46085361 Code(s): I50.9 - HEART FAILURE, UNSPECIFIED Status: Chronic Priority: High Current Visit: Yes (8) Leukocytosis SNOMED Code(s): 375496598 Code(s): D72.829 - ELEVATED WHITE BLOOD CELL COUNT, UNSPECIFIED Status: Acute Priority: High Current Visit: Yes Qualifiers: Leukocytosis type: other Qualified Code(s): D72.828 - Other elevated white blood cell count - Problem List Review Problem List Initiated/Reviewed/Updated: Yes - My Orders Last 24 Hours: My Active Orders 07/30/17 20:00 Non-Formulary Medication [NF Drug] 5 each PO BID 07/31/17 01:44 Acetaminophen [Tylenol] 650 mg PO Q6H PRN 07/31/17 03:46 Telemetry Monitoring [Cardiac Monitoring] [RC] .As Directed 07/31/17 08:00 Clopidogrel [Plavix] 75 mg PO DAILY 08/01/17 05:11 BASIC METABOLIC PANEL,BMP [CHEM] AM CBC WITH AUTO DIFF [HEME] AM - Plan Plan:: Patient to remain on clindamycin. WBC improving. Repeat labs in am.
[2017-07-31] MEDS ORDERED: Diltiazem 25 MG/5 ML SDV IVPUSH ONE ×2 (10:30→20:43)
[2017-07-31] MEDS ORDERED: Clindamycin Phosphate 600 MG/4 ML SDV ONE ×2 (12:10→19:09)
--- NOTE | 2017-07-31 15:49 | CR ---
DATE OF SERVICE: 07/30/17 CLINICAL DATA: Short of breath AP PORTABLE CHEST: Comparison is made to a prior exam dated 05/21/2016. The patient is status post median sternotomy. The heart size is normal. There is calcification of the aortic arch. The lungs are clear. No changes from the prior exam. No evidence of acute intrathoracic disease. [id number] MTDD
[2017-07-31] MEDS ORDERED: Cholecalciferol (Vitamin D3) 2,000 Unit Cap ONE (19:21)
[2017-07-31] MEDS: atorvaSTATin 20 MG Tab PO SCH (19:40)
[2017-07-31] MEDS ORDERED: Furosemide 40 MG Tab ONE (19:44)
--- NOTE | 2017-07-31 19:55 | PCM.PN ---
- General Info Date of Service: 07/31/17 Subjective Update: Nursing note that patient is having increased fever with decreased appetite. He has increased heart rate and has been flushed. Patient denies any worsening of his shortness of breath. - Review of Systems General: Reports: Fever, Appetite (decreased) HEENT: Reports: No Symptoms Pulmonary: Reports: No Symptoms Cardiovascular: Reports: No Symptoms Gastrointestinal: Reports: No Symptoms Musculoskeletal: Reports: No Symptoms Neurological: Reports: No Symptoms - Patient Data Vitals - Most Recent: Last Vital Signs Temp 37.7 C 07/31/17 16:00 Pulse 129 H 07/31/17 19:40 Resp 18 07/31/17 16:00 BP 134/56 L 07/31/17 16:00 Pulse Ox 100 07/31/17 16:00 Weight - Most Recent: 94.256 kg I&O - Last 24 Hours: Intake & Output 07/31/17 07/31/17 07/31/17 06:59 14:59 22:59 Intake Total 84 790 Output Total 200 1075 Balance -116 -285 Lab Results Last 24 Hours: Laboratory Results - last 24 hr 07/31/17 07/31/17 07/31/17 Range/Units 07:27 08:10 08:10 WBC 17.1 H D (4.0-11.0) K/uL RBC 3.72 L (4.50-6.50) M/uL Hgb 9.9 L (13.0-18.0) g/dL Hct 32.9 L (40.0-54.0) % MCV 88 (76-96) fL MCH 26.6 L (27.0-32.0) pg MCHC 30.1 L (31.0-35.0) g/dL RDW 21.4 H (11.0-16.0) % Plt Count 242 (150-400) K/uL MPV 10.3 H (6.0-10.0) fL Neut % (Auto) 86.0 H (45.0-70.0) % Lymph % (Auto) 5.7 L (20.0-40.0) % [place] % (Auto) 8.0 (3.0-10.0) % Eos % (Auto) 0.1 L (1.0-5.0) % Baso % (Auto) 0.2 (0.0-0.5) % Neut # (Auto) 14.70 H (2.00-7.50) K/uL Lymph # (Auto) 0.97 L (1.50-4.00) K/uL [place] # (Auto) 1.36 H (0.20-0.80) K/uL Eos # (Auto) 0.01 L (0.04-0.40) K/uL Baso # (Auto) 0.03 (0.02-0.10) K/uL Sodium 139 (136-145) mmol/L Potassium 3.5 (3.5-5.1) mmol/L Chloride 99 (98-107) mmol/L Carbon Dioxide 35.3 H (21.0-32.0) mmol/L Anion Gap 8.2 (5.0-15.0) mmol/L BUN 21 (8-26) mg/dL Creatinine 1.49 H (0.70-1.30) mg/dL Est Cr Clr Drug Dosing TNP Estimated GFR (MDRD) 46 L (>60) MLS/MIN BUN/Creatinine Ratio 14.1 (6-25) Glucose 131 H (74-100) mg/dL POC Glucose 120 H (74-110) mg/dL Lactic Acid (0.90-1.70) mmol/L Calcium 8.8 (8.5-10.1) mg/dL Total Bilirubin 0.5 (0.0-1.0) mg/dL AST 21 (15-37) U/L ALT 28 (12-78) U/L Alkaline Phosphatase 53 (46-116) U/L Troponin I 0.431 H* (0.000-0.060) ng/mL Total Protein 6.5 (6.4-8.2) g/dL Albumin 3.1 L (3.4-5.0) g/dL Globulin 3.4 (2.2-4.2) g/dL Albumin/Globulin Ratio 0.9 (0.8-2.0) 07/31/17 Range/Units 08:10 WBC (4.0-11.0) K/uL RBC (4.50-6.50) M/uL Hgb (13.0-18.0) g/dL Hct (40.0-54.0) % MCV (76-96) fL MCH (27.0-32.0) pg MCHC (31.0-35.0) g/dL RDW (11.0-16.0) % Plt Count (150-400) K/uL MPV (6.0-10.0) fL Neut % (Auto) (45.0-70.0) % Lymph % (Auto) (20.0-40.0) % [place] % (Auto) (3.0-10.0) % Eos % (Auto) (1.0-5.0) % Baso % (Auto) (0.0-0.5) % Neut # (Auto) (2.00-7.50) K/uL Lymph # (Auto) (1.50-4.00) K/uL [place] # (Auto) (0.20-0.80) K/uL Eos # (Auto) (0.04-0.40) K/uL Baso # (Auto) (0.02-0.10) K/uL Sodium (136-145) mmol/L Potassium (3.5-5.1) mmol/L Chloride (98-107) mmol/L Carbon Dioxide (21.0-32.0) mmol/L Anion Gap (5.0-15.0) mmol/L BUN (8-26) mg/dL Creatinine (0.70-1.30) mg/dL Est Cr Clr Drug Dosing Estimated GFR (MDRD) (>60) MLS/MIN BUN/Creatinine Ratio (6-25) Glucose (74-100) mg/dL POC Glucose (74-110) mg/dL Lactic Acid 1.68 (0.90-1.70) mmol/L Calcium (8.5-10.1) mg/dL Total Bilirubin (0.0-1.0) mg/dL AST (15-37) U/L ALT (12-78) U/L Alkaline Phosphatase (46-116) U/L Troponin I (0.000-0.060) ng/mL Total Protein (6.4-8.2) g/dL Albumin (3.4-5.0) g/dL Globulin (2.2-4.2) g/dL Albumin/Globulin Ratio (0.8-2.0) Med Orders - Current: Current Medications Acetaminophen (Tylenol) 650 mg PO Q6H PRN PRN Reason: Fever Last Admin: 07/31/17 17:39 Dose: 650 mg Atorvastatin Calcium (Lipitor) 20 mg PO BEDTIME [facility] Last Admin: 07/31/17 19:40 Dose: 20 mg Carvedilol (Coreg) 3.125 mg PO BID [facility] Last Admin: 07/31/17 19:40 Dose: 3.125 mg Clopidogrel Bisulfate (Plavix) 75 mg PO DAILY [facility] Last Admin: 07/31/17 08:01 Dose: 75 mg Ferrous Sulfate (Ferrous Sulfate) 325 mg PO DAILY [facility] Last Admin: 07/31/17 08:00 Dose: 325 mg Furosemide (Lasix) 80 mg PO BID [facility] Last Admin: 07/31/17 19:40 Dose: 80 mg Sodium Chloride (Normal Saline) 1,000 mls @ 0 mls/hr IV ASDIRECTED [facility] PRN Reason: KVO Clindamycin Phosphate 600 mg/ (Dextrose/Water) 54 mls @ 150 mls/hr IV Q8H [facility] Last Admin: 07/31/17 19:38 Dose: 150 mls/hr Metolazone (Zaroxolyn) 5 mg PO BID [facility] Last Admin: 07/31/17 19:40 Dose: 5 mg Montelukast Sodium (Singulair) 10 mg PO DAILY [facility] Last Admin: 07/31/17 07:59 Dose: 10 mg Nitroglycerin (Nitrostat) 0.4 mg SL ASDIRECTED PRN PRN Reason: Pain Non-Formulary Medication (Calcium Carb/Magnesium Oxid/D3 [Calcium Magnesium + D] ) 1 each PO DAILY [facility] Last Admin: 07/31/17 08:15 Dose: 1 each Non-Formulary Medication (Cholecalciferol (Vitamin D3) [Vitamin D3]) 2,000 unit PO BID [facility] Last Admin: 07/31/17 08:16 Dose: 2,000 unit Non-Formulary Medication (Cyanocobalamin (Vitamin B-12) [B-12]) 500 mcg PO DAILY [facility] Last Admin: 07/31/17 08:13 Dose: 500 mcg Non-Formulary Medication (Hydrocodone/Acetaminophen [[place] 7.5-325]) 1 tab PO Q4H PRN PRN Reason: Pain Non-Formulary Medication (Niacin [Niacin]) 1,000 mg PO DAILY [facility] Last Admin: 07/31/17 08:18 Dose: 1,000 mg Non-Formulary Medication (Potassium Citrate [Urocit-K]) 99 meq PO DAILY [facility] Last Admin: 07/31/17 08:17 Dose: 99 meq Non-Formulary Medication (Nf Drug) 5 each PO BID [facility] Last Admin: 07/31/17 19:41 Dose: 5 each Pantoprazole Sodium (Protonix) 40 mg PO BID [facility] Last Admin: 07/31/17 19:41 Dose: 40 mg Sodium Chloride (Saline Flush) 10 ml FLUSH ASDIRECTED PRN PRN Reason: Keep Vein Open Discontinued Medications Cholecalciferol (Vitamin D3) Confirm Administered Dose 2,000 unit .ROUTE .STK- MED ONE Stop: 07/31/17 07:47 Last Admin: 07/31/17 19:39 Dose: 2,000 unit Cholecalciferol (Vitamin D3) Confirm Administered Dose 2,000 unit .ROUTE .STK- MED ONE Stop: 07/31/17 19:22 Clindamycin Phosphate (Cleocin) Confirm Administered Dose 600 mg .ROUTE .STK- MED ONE Stop: 07/31/17 12:11 Last Admin: 07/31/17 12:18 Dose: Not Given Clindamycin Phosphate (Cleocin) Confirm Administered Dose 600 mg .ROUTE .STK- MED ONE Stop: 07/31/17 19:10 Last Admin: 07/31/17 19:14 Dose: Not Given Cyanocobalamin (Vitamin B12) Confirm Administered Dose 1,000 mcg .ROUTE .STK- MED ONE Stop: 07/31/17 07:47 Last Admin: 07/31/17 08:09 Dose: Not Given Furosemide (Lasix) Confirm Administered Dose 40 mg .ROUTE .STK-MED ONE Stop: 07/31/17 19:45 - Exam General: Alert, Oriented, Cooperative HEENT: Pupils Equal, Pupils Reactive Neck: Supple Lungs: Clear to Auscultation, Normal Respiratory Effort Cardiovascular: Irregular Rhythm, Murmurs (systolic) GI/Abdominal Exam: Normal Bowel Sounds - Problem List & Annotations (1) On anticoagulant therapy SNOMED Code(s): 698955830 Code(s): 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 Status: Chronic Priority: Medium Current Visit: Yes (2) Afib, Atrial fibrillation SNOMED Code(s): 09063546 Code(s): I48.91 - UNSPECIFIED ATRIAL FIBRILLATION Status: Chronic Priority: High Current Visit: Yes (3) HTN, Benign essential hypertension SNOMED Code(s): 6541062 Code(s): I10 - ESSENTIAL (PRIMARY) HYPERTENSION Status: Chronic Priority : Low Current Visit: Yes (4) Type II diabetes mellitus without complication SNOMED Code(s): 092024792 Code(s): E11.9 - TYPE 2 DIABETES MELLITUS WITHOUT COMPLICATIONS Status: Chronic Priority: Low Current Visit: Yes (5) Shortness of breath SNOMED Code(s): 115841369 Code(s): R06.02 - SHORTNESS OF BREATH Status: Acute Priority: High Current Visit: Yes (6) Elevated troponin SNOMED Code(s): 462184683, 629097999 Code(s): R79.89 - OTHER SPECIFIED ABNORMAL FINDINGS OF BLOOD CHEMISTRY Status: Acute Priority: High Current Visit: Yes (7) CHF, Congestive heart failure SNOMED Code(s): 61739079 Code(s): I50.9 - HEART FAILURE, UNSPECIFIED Status: Chronic Priority: High Current Visit: Yes (8) Leukocytosis SNOMED Code(s): 269854339 Code(s): D72.829 - ELEVATED WHITE BLOOD CELL COUNT, UNSPECIFIED Status: Acute Priority: High Current Visit: Yes Qualifiers: Leukocytosis type: other Qualified Code(s): D72.828 - Other elevated white blood cell count - Problem List Review Problem List Initiated/Reviewed/Updated: Yes - My Orders Last 24 Hours: My Active Orders 07/30/17 20:00 Non-Formulary Medication [NF Drug] 5 each PO BID 07/31/17 01:44 Acetaminophen [Tylenol] 650 mg PO Q6H PRN 07/31/17 03:46 Telemetry Monitoring [Cardiac Monitoring] [RC] .As Directed 07/31/17 08:00 Clopidogrel [Plavix] 75 mg PO DAILY 07/31/17 19:51 BASIC METABOLIC PANEL,BMP [CHEM] Stat CBC WITH AUTO DIFF [HEME] Stat TROPONIN I [CHEM] Stat 08/01/17 05:11 BASIC METABOLIC PANEL,BMP [CHEM] AM CBC WITH AUTO DIFF [HEME] AM - Plan Plan:: Patient to remain on clindamycin. WBC improving. Repeat labs in am. [id number] - We will redraw labs for recheck due to increasing temp and fever recurrence despite acetaminophen use. Nursing report that patient is flushed and may be worse.
[2017-08-01] MEDS: Non-Formulary Medication 1 Each (Cholecalciferol (Vitamin D3) [Vitamin D3] 2,000 UNIT) PO SCH ×3 (00:28→22:04)
[2017-08-01] MEDS ORDERED: Diltiazem 120 MG Cap.CD ONE (01:51)
[2017-08-01] MEDS: Acetaminophen 325 MG Tab PO PRN ×3 (02:33→18:35)
[2017-08-01] MEDS ORDERED: Diltiazem 50 MG/10 ML SDV IVPUSH ONE (02:42)
[2017-08-01] MEDS ORDERED: Diltiazem 25 MG/5 ML SDV IVPUSH PRN (02:45)
[2017-08-01] MEDS ORDERED: Clindamycin Phosphate 600 MG/4 ML SDV ONE (02:46)
[2017-08-01] MEDS: Clindamycin Phosphate 600 MG in Dextrose 5% in Water 50 ML IV SCH ×4 (03:17→10:53)
[2017-08-01] MEDS: Carvedilol 3.125 MG Tab PO SCH ×3 (08:40→19:21)
[2017-08-01] MEDS: Ferrous Sulfate 325 MG Tab PO SCH (08:42)
[2017-08-01] MEDS: Furosemide 40 MG Tab PO SCH ×2 (08:44→19:24)
[2017-08-01] MEDS: Clopidogrel 75 MG Tab PO SCH (08:45)
[2017-08-01] MEDS: Pantoprazole 40 MG Tab.CR PO SCH ×2 (08:46→19:21)
[2017-08-01] MEDS: Metolazone 5 MG Tab PO SCH ×2 (08:46→19:21)
[2017-08-01] MEDS: Montelukast 10 MG Tab PO SCH (08:46)
[2017-08-01] MEDS ORDERED: Cholecalciferol (Vitamin D3) 2,000 Unit Cap ONE (08:51)
[2017-08-01] MEDS ORDERED: Cyanocobalamin (Vitamin B12) 1,000 MCG Tab ONE (08:52)
[2017-08-01] MEDS: Cyanocobalamin (Vitamin B12) 1,000 MCG Tab ONE (09:00)
[2017-08-01] MEDS: Non-Formulary Medication 1 Each PO SCH (09:02)
[2017-08-01] MEDS: CYANOCOBALAMIN 500 MCG PO SCH (09:04)
[2017-08-01] MEDS: NIACIN 1000 MG PO SCH (10:34)
[2017-08-01] MEDS: POTASSIUM CITRATE PO SCH (10:35)
--- NOTE | 2017-08-01 10:59 | PCM.PN ---
- General Info Date of Service: 08/01/17 Subjective Update: Patient states he does not feel feverish but does not feel completely better. He denies any chest pain and no increased shortness of breath. He does notice some tremors of the right hand but has had this intermittently the past week. Functional Status: Reports: Pain Controlled, Tolerating Diet - Review of Systems General: Reports: Chills HEENT: Reports: No Symptoms Pulmonary: Reports: Shortness of Breath (chronic at baseline) Cardiovascular: Reports: No Symptoms Gastrointestinal: Reports: No Symptoms Genitourinary: Reports: Frequency Musculoskeletal: Reports: No Symptoms Skin: Reports: No Symptoms Neurological: Reports: No Symptoms Psychiatric: Reports: No Symptoms - Patient Data Vitals - Most Recent: Last Vital Signs Temp 36.5 C 08/01/17 06:00 Pulse 102 H 08/01/17 08:40 Resp 22 H 08/01/17 06:00 BP 130/60 08/01/17 08:40 Pulse Ox 99 08/01/17 06:00 Weight - Most Recent: 94.256 kg I&O - Last 24 Hours: Intake & Output 07/31/17 08/01/17 08/01/17 22:59 06:59 14:59 Intake Total 790 1130 Output Total 1075 820 Balance -285 310 Lab Results Last 24 Hours: Laboratory Results - last 24 hr 07/31/17 07/31/17 08/01/17 Range/Units 20:10 20:10 07:50 WBC 15.3 H 11.5 H D (4.0-11.0) K/uL RBC 3.71 L 4.13 L (4.50-6.50) M/uL Hgb 9.8 L 10.9 L (13.0-18.0) g/dL Hct 32.1 L 35.9 L (40.0-54.0) % MCV 87 87 (76-96) fL MCH 26.4 L 26.4 L (27.0-32.0) pg MCHC 30.5 L 30.4 L (31.0-35.0) g/dL RDW 20.8 H 20.6 H (11.0-16.0) % Plt Count 243 299 D (150-400) K/uL MPV 9.9 10.4 H (6.0-10.0) fL Neut % (Auto) 87.8 H 82.9 H (45.0-70.0) % Lymph % (Auto) 3.1 L 7.2 L (20.0-40.0) % [place] % (Auto) 8.9 9.6 (3.0-10.0) % Eos % (Auto) 0.0 L 0.0 L (1.0-5.0) % Baso % (Auto) 0.2 0.3 (0.0-0.5) % Neut # (Auto) 13.41 H 9.53 H (2.00-7.50) K/uL Lymph # (Auto) 0.48 L 0.83 L (1.50-4.00) K/uL [place] # (Auto) 1.36 H 1.11 H (0.20-0.80) K/uL Eos # (Auto) 0.00 L 0.00 L (0.04-0.40) K/uL Baso # (Auto) 0.03 0.04 (0.02-0.10) K/uL Sodium 136 (136-145) mmol/L Potassium 3.0 L (3.5-5.1) mmol/L Chloride 95 L (98-107) mmol/L Carbon Dioxide 33.1 H (21.0-32.0) mmol/L Anion Gap 10.9 (5.0-15.0) mmol/L BUN 25 (8-26) mg/dL Creatinine 1.75 H (0.70-1.30) mg/dL Est Cr Clr Drug Dosing TNP Estimated GFR (MDRD) 38 L (>60) MLS/MIN BUN/Creatinine Ratio 14.3 (6-25) Glucose 279 H D (74-100) mg/dL Calcium 8.7 (8.5-10.1) mg/dL Troponin I 0.474 H* (0.000-0.060) ng/mL 08/01/17 08/01/17 Range/Units 07:50 07:50 WBC (4.0-11.0) K/uL RBC (4.50-6.50) M/uL Hgb (13.0-18.0) g/dL Hct (40.0-54.0) % MCV (76-96) fL MCH (27.0-32.0) pg MCHC (31.0-35.0) g/dL RDW (11.0-16.0) % Plt Count (150-400) K/uL MPV (6.0-10.0) fL Neut % (Auto) (45.0-70.0) % Lymph % (Auto) (20.0-40.0) % [place] % (Auto) (3.0-10.0) % Eos % (Auto) (1.0-5.0) % Baso % (Auto) (0.0-0.5) % Neut # (Auto) (2.00-7.50) K/uL Lymph # (Auto) (1.50-4.00) K/uL [place] # (Auto) (0.20-0.80) K/uL Eos # (Auto) (0.04-0.40) K/uL Baso # (Auto) (0.02-0.10) K/uL Sodium 138 (136-145) mmol/L Potassium 3.1 L (3.5-5.1) mmol/L Chloride 95 L (98-107) mmol/L Carbon Dioxide 35.3 H (21.0-32.0) mmol/L Anion Gap 10.8 (5.0-15.0) mmol/L BUN 28 H (8-26) mg/dL Creatinine 1.81 H (0.70-1.30) mg/dL Est Cr Clr Drug Dosing TNP Estimated GFR (MDRD) 37 L (>60) MLS/MIN BUN/Creatinine Ratio 15.5 (6-25) Glucose 177 H D (74-100) mg/dL Calcium 9.2 (8.5-10.1) mg/dL Troponin I 0.518 H* (0.000-0.060) ng/mL Med Orders - Current: Current Medications Acetaminophen (Tylenol) 650 mg PO Q6H PRN PRN Reason: Fever Last Admin: 08/01/17 02:33 Dose: 650 mg Hydrocodone Bitart/Acetaminophen ([place] 325-5 Mg) 1 tab PO Q4H PRN PRN Reason: Pain Atorvastatin Calcium (Lipitor) 20 mg PO BEDTIME [facility] Last Admin: 07/31/17 19:40 Dose: 20 mg Carvedilol (Coreg) 3.125 mg PO BID [facility] Last Admin: 08/01/17 08:40 Dose: 3.125 mg Clopidogrel Bisulfate (Plavix) 75 mg PO DAILY [facility] Last Admin: 08/01/17 08:45 Dose: 75 mg Ferrous Sulfate (Ferrous Sulfate) 325 mg PO DAILY [facility] Last Admin: 08/01/17 08:42 Dose: 325 mg Furosemide (Lasix) 80 mg PO BID [facility] Last Admin: 08/01/17 08:44 Dose: 80 mg Sodium Chloride (Normal Saline) 1,000 mls @ 0 mls/hr IV ASDIRECTED [facility] PRN Reason: KVO Clindamycin Phosphate 600 mg/ (Dextrose/Water) 54 mls @ 150 mls/hr IV Q8H [facility] Last Admin: 08/01/17 03:17 Dose: Not Given Metolazone (Zaroxolyn) 5 mg PO BID [facility] Last Admin: 08/01/17 08:46 Dose: 5 mg Montelukast Sodium (Singulair) 10 mg PO DAILY [facility] Last Admin: 08/01/17 08:46 Dose: 10 mg Nitroglycerin (Nitrostat) 0.4 mg SL ASDIRECTED PRN PRN Reason: Pain Non-Formulary Medication (Calcium Carb/Magnesium Oxid/D3 [Calcium Magnesium + D] ) 1 each PO DAILY [facility] Last Admin: 08/01/17 10:34 Dose: Not Given Non-Formulary Medication (Cholecalciferol (Vitamin D3) [Vitamin D3]) 2,000 unit PO BID [facility] Last Admin: 08/01/17 09:05 Dose: 2,000 unit Non-Formulary Medication (Cyanocobalamin (Vitamin B-12) [B-12]) 500 mcg PO DAILY [facility] Last Admin: 08/01/17 09:04 Dose: 500 mcg Non-Formulary Medication (Niacin [Niacin]) 1,000 mg PO DAILY [facility] Last Admin: 08/01/17 10:34 Dose: Not Given Non-Formulary Medication (Potassium Citrate [Urocit-K]) 99 meq PO DAILY [facility] Last Admin: 08/01/17 10:35 Dose: Not Given Non-Formulary Medication (Nf Drug) 5 each PO BID [facility] Last Admin: 08/01/17 09:02 Dose: 5 each Pantoprazole Sodium (Protonix) 40 mg PO BID [facility] Last Admin: 08/01/17 08:46 Dose: 40 mg Sodium Chloride (Saline Flush) 10 ml FLUSH ASDIRECTED PRN PRN Reason: Keep Vein Open Last Admin: 08/01/17 02:32 Dose: 10 ml Discontinued Medications Cholecalciferol (Vitamin D3) Confirm Administered Dose 2,000 unit .ROUTE .STK- MED ONE Stop: 07/31/17 07:47 Last Admin: 07/31/17 19:39 Dose: 2,000 unit Cholecalciferol (Vitamin D3) Confirm Administered Dose 2,000 unit .ROUTE .STK- MED ONE Stop: 07/31/17 19:22 Last Admin: 08/01/17 00:28 Dose: 2,000 unit Cholecalciferol (Vitamin D3) Confirm Administered Dose 2,000 unit .ROUTE .STK- MED ONE Stop: 08/01/17 08:52 Clindamycin Phosphate (Cleocin) Confirm Administered Dose 600 mg .ROUTE .STK- MED ONE Stop: 07/31/17 12:11 Last Admin: 07/31/17 12:18 Dose: Not Given Clindamycin Phosphate (Cleocin) Confirm Administered Dose 600 mg .ROUTE .STK- MED ONE Stop: 07/31/17 19:10 Last Admin: 07/31/17 19:14 Dose: Not Given Clindamycin Phosphate (Cleocin) Confirm Administered Dose 600 mg .ROUTE .STK- MED ONE Stop: 08/01/17 02:47 Last Admin: 08/01/17 03:17 Dose: 600 mg Cyanocobalamin (Vitamin B12) Confirm Administered Dose 1,000 mcg .ROUTE .STK- MED ONE Stop: 07/31/17 07:47 Last Admin: 08/01/17 09:00 Dose: 1,000 mcg Cyanocobalamin (Vitamin B12) Confirm Administered Dose 1,000 mcg .ROUTE .STK- MED ONE Stop: 08/01/17 08:53 Diltiazem HCl (Diltiazem) 25 mg IVPUSH ONETIME ONE Stop: 07/31/17 20:44 Last Admin: 08/01/17 00:28 Dose: 10 mg Diltiazem HCl (Diltiazem) 25 mg IVPUSH ONETIME ONE Stop: 07/31/17 10:31 Last Admin: 08/01/17 02:08 Dose: Not Given Diltiazem HCl (Cardizem Cd) Confirm Administered Dose 120 mg .ROUTE .STK-MED ONE Stop: 08/01/17 01:52 Last Admin: 08/01/17 02:08 Dose: 120 mg Diltiazem HCl (Cardizem) 15 mg IVPUSH ONETIME ONE Stop: 08/01/17 02:43 Last Admin: 08/01/17 01:25 Dose: 15 mg Diltiazem HCl (Diltiazem) 15 mg IVPUSH ONETIME PRN PRN Reason: Tachycardia Furosemide (Lasix) Confirm Administered Dose 40 mg .ROUTE .STK-MED ONE Stop: 07/31/17 19:45 Last Admin: 08/01/17 00:28 Dose: Not Given - Exam General: Alert, Oriented, Cooperative HEENT: Pupils Equal, Pupils Reactive, EOMI Neck: Supple Lungs: Normal Respiratory Effort, Decreased Breath Sounds, Rhonchi Cardiovascular: Irregular Rhythm, Tachycardia GI/Abdominal Exam: Normal Bowel Sounds Back Exam: Normal Inspection Extremities: Normal Inspection - Problem List & Annotations (1) On anticoagulant therapy SNOMED Code(s): 128565192 Code(s): Z79.01 - LONGTERM (CURRENT) USE OF ANTICOAGULANTS Status: Chronic Priority: Medium Current Visit: Yes (2) Afib, Atrial fibrillation SNOMED Code(s): 84805112 Code(s): I48.91 - UNSPECIFIED ATRIAL FIBRILLATION Status: Chronic Priority: High Current Visit: Yes (3) HTN, Benign essential hypertension SNOMED Code(s): 6794842 Code(s): I10 - ESSENTIAL (PRIMARY) HYPERTENSION Status: Chronic Priority : Low Current Visit: Yes (4) Type II diabetes mellitus without complication SNOMED Code(s): 416920145 Code(s): E11.9 - TYPE 2 DIABETES MELLITUS WITHOUT COMPLICATIONS Status: Chronic Priority: Low Current Visit: Yes (5) Shortness of breath SNOMED Code(s): 814225725 Code(s): R06.02 - SHORTNESS OF BREATH Status: Acute Priority: High Current Visit: Yes (6) Elevated troponin SNOMED Code(s): 849550097, 473438617 Code(s): R79.89 - OTHER SPECIFIED ABNORMAL FINDINGS OF BLOOD CHEMISTRY Status: Acute Priority: High Current Visit: Yes (7) CHF, Congestive heart failure SNOMED Code(s): 89241445 Code(s): I50.9 - HEART FAILURE, UNSPECIFIED Status: Chronic Priority: High Current Visit: Yes (8) Leukocytosis SNOMED Code(s): 307942968 Code(s): D72.829 - ELEVATED WHITE BLOOD CELL COUNT, UNSPECIFIED Status: Acute Priority: High Current Visit: Yes Qualifiers: Leukocytosis type: other Qualified Code(s): D72.828 - Other elevated white blood cell count - Problem List Review Problem List Initiated/Reviewed/Updated: Yes - Plan Plan:: Patient to remain on clindamycin. WBC improving. Repeat labs in am. [id number] - We will redraw labs for recheck due to increasing temp and fever recurrence despite acetaminophen use. Nursing report that patient is flushed and may be worse. 08-01-17 1047 - Counseled on patient on elevated troponins with history of troponin elevation and chronic renal dysfunction. Discussed atrial fibrillation and rvr which is not fully controlled. Counseled on antibiotics and changing today from clindamycin to ciprofloxacin due to sensitivities. We will recheck labs and troponins in AM. Continue telemetry. We will add cardizem 240 mg for rate control. Continue to monitor BP hourly.
[2017-08-01] MEDS: Diltiazem 180 MG Cap.CD PO SCH (11:27)
[2017-08-01] MEDS ORDERED: Albuterol 8 GM Inhaler INH PRN (18:46)
[2017-08-01] MEDS ORDERED: Albuterol 0.083% 2.5 MG/3 ML Neb Soln ONE (18:47)
[2017-08-01] MEDS ORDERED: Albuterol 0.083% 2.5 MG/3 ML Neb Soln NEB PRN (18:57)
--- NOTE | 2017-08-01 19:03 | PCM.SN ---
- Free Text/Narrative Note: Patient observed by nursing with increased shortness of breath. He recently went to the toilet for a BM and stated he felt fine but pulse ox showed decreased oxygenation into the 50's but patient denies any issues or lightheadedness. Patient returned to bed and stated he felt shakey and showed signs of increased breathing difficulty. Patient examined and has decreased breath sounds throughout. Patient does have a history of asthma he states - denies or unsure of if he has COPD. Albuterol neb given. Improved symptoms. We will start Pulmicort today. Patient states he is nauseated after the albuterol. Zofran 4mg prn. Duoneb scheduled for q4 prn.
[2017-08-01] MEDS ORDERED: Ondansetron 4 MG/2 ML SDV ONE (19:12)
[2017-08-01] MEDS ORDERED: Albuterol/Ipratropium 3.0-0.5 MG/3 ML Neb Soln NEB PRN (19:16)
[2017-08-01] MEDS ORDERED: Ondansetron 4 MG/2 ML SDV IVPUSH PRN (19:16)
[2017-08-01] MEDS: Ciprofloxacin in D5W 400 MG in Premix Bag 1 BAG IV SCH ×2 (19:20)
[2017-08-01] MEDS: atorvaSTATin 20 MG Tab PO SCH (19:21)
[2017-08-01] MEDS: Budesonide 0.5 MG/2 ML Neb Susp NEB SCH (19:28)
[2017-08-01] MEDS: Apixaban 5 MG Tab PO SCH (20:00)
[2017-08-02] MEDS: Budesonide 0.5 MG/2 ML Neb Susp NEB SCH (06:16)
[2017-08-02] MEDS: Metolazone 5 MG Tab PO SCH (07:37)
[2017-08-02] MEDS: Diltiazem 180 MG Cap.CD PO SCH (07:40)
[2017-08-02] MEDS: Pantoprazole 40 MG Tab.CR PO SCH (07:40)
[2017-08-02] MEDS: Ferrous Sulfate 325 MG Tab PO SCH (07:40)
[2017-08-02] MEDS: Furosemide 40 MG Tab PO SCH (07:40)
[2017-08-02] MEDS: Carvedilol 3.125 MG Tab PO SCH (07:44)
[2017-08-02] MEDS: Clopidogrel 75 MG Tab PO SCH (07:44)
[2017-08-02] MEDS: Montelukast 10 MG Tab PO SCH (07:44)
[2017-08-02] MEDS: Ciprofloxacin in D5W 400 MG in Premix Bag 1 BAG IV SCH ×2 (07:46)
[2017-08-02] MEDS: Non-Formulary Medication 1 Each (Cholecalciferol (Vitamin D3) [Vitamin D3] 2,000 UNIT) PO SCH (07:46)
[2017-08-02] MEDS: Apixaban 5 MG Tab PO SCH (07:47)
[2017-08-02] MEDS: CYANOCOBALAMIN 500 MCG PO SCH (07:47)
[2017-08-02] MEDS: POTASSIUM CITRATE PO SCH (07:48)
[2017-08-02] MEDS: NIACIN 1000 MG PO SCH (07:48)
[2017-08-02 07:49] VITALS: BP 138/58
[2017-08-02] MEDS: Acetaminophen 325 MG Tab PO PRN (07:51)
[2017-08-02] MEDS ORDERED: Aspirin 81 MG Tab.EC PO SCH (08:00)
[2017-08-02] MEDS ORDERED: metFORMIN 500 MG Tab PO SCH (08:00)
--- NOTE | 2017-08-02 11:28 | CR ---
DATE OF SERVICE: 08/02/17 CLINICAL DATA: shortness of breath AP PORTABLE CHEST: Comparison is made to a prior exam dated 07/30/17. The patient is status post median sternotomy. The heart is enlarged. It has increased in size from the prior exam. The pulmonary vasculature is more prominent than on the prior exam with some cephalization of flow consistent with pulmonary venous congestion. The lungs are clear. No pneumothorax. No pleural effusions. IMPRESSION: Findings consistent with congestive failure. [id number] [facility]
--- NOTE | 2017-08-02 17:41 | PCM.DCSUM1 ---
Discharge Summary - Discharge Data Discharge Date: 08/02/17 Discharge Disposition: DC/Tfer to Acute Hospital 02 Condition: Stable - Discharge Diagnosis/Problem(s) (1) On anticoagulant therapy SNOMED Code(s): 966686969 ICD Code: Z79.01 - MCC (CURRENT) USE OF ANTICOAGULANTS Status: Chronic Priority: Medium Current Visit: Yes (2) Afib, Atrial fibrillation SNOMED Code(s): 81544329 ICD Code: I48.91 - UNSPECIFIED ATRIAL FIBRILLATION Status: Chronic Priority: High Current Visit: Yes (3) HTN, Benign essential hypertension SNOMED Code(s): 9455015 ICD Code: I10 - ESSENTIAL (PRIMARY) HYPERTENSION Status: Chronic Priority : Low Current Visit: Yes (4) Type II diabetes mellitus without complication SNOMED Code(s): 738893006 ICD Code: E11.9 - TYPE 2 DIABETES MELLITUS WITHOUT COMPLICATIONS Status: Chronic Priority: Low Current Visit: Yes (5) Shortness of breath SNOMED Code(s): 817143307 ICD Code: R06.02 - SHORTNESS OF BREATH Status: Acute Priority: High Current Visit: Yes (6) Elevated troponin SNOMED Code(s): 141277478, 220899832 ICD Code: R79.89 - OTHER SPECIFIED ABNORMAL FINDINGS OF BLOOD CHEMISTRY Status: Acute Priority: High Current Visit: Yes (7) CHF, Congestive heart failure SNOMED Code(s): 26441859 ICD Code: I50.9 - HEART FAILURE, UNSPECIFIED Status: Chronic Priority: High Current Visit: Yes (8) Leukocytosis SNOMED Code(s): 084859992 ICD Code: D72.829 - ELEVATED WHITE BLOOD CELL COUNT, UNSPECIFIED Status: Acute Priority: High Current Visit: Yes Qualifiers: Leukocytosis type: other Qualified Code(s): D72.828 - Other elevated white blood cell count (9) Klebsiella sepsis SNOMED Code(s): 771453929 ICD Code: A41.4 - SEPSIS DUE TO ANAEROBES Status: Acute Priority: High Current Visit: Yes (10) Acute on chronic renal failure SNOMED Code(s): 267855943 ICD Code: N17.9 - ACUTE KIDNEY FAILURE, UNSPECIFIED; N18.9 - CHRONIC KIDNEY DISEASE, UNSPECIFIED Status: Acute Priority: High Current Visit: Yes Qualifiers: Chronic kidney disease stage: stage 4 (severe) - Patient Instructions Diet: Usual Diet as Tolerated - Discharge Plan Home Medications: Home Meds Montelukast Sodium [Singulair] 10 mg PO DAILY 07/30/13 [History] Nitroglycerin [Nitrostat] 0.4 mg SL ASDIRECTED PRN 07/30/13 [History] Ferrous Sulfate 325 mg PO DAILY 09/21/13 [History] Furosemide [Furosemide] 40 mg PO BID 09/21/13 [History] atorvaSTATin [Lipitor] 20 mg PO BEDTIME 09/21/13 [History] Calcium Carb/Magnesium Oxid/D3 [Calcium Magnesium + D] 1 each PO DAILY 12/25/14 [History] Cholecalciferol (Vitamin D3) [Vitamin D-3] 2,000 unit PO BID 12/25/14 [History] Potassium Citrate [Urocit-K] 99 meq PO DAILY 12/25/14 [History] Amiodarone [Cordarone] 200 mg PO DAILY 02/25/16 [History] Apixaban [Eliquis] 5 mg PO BID 02/25/16 [History] Aspirin [Ecotrin] 81 mg PO DAILY 02/25/16 [History] Hydrocodone/Acetaminophen [[place] 7.5-325] 1 tab PO Q4H PRN 02/25/16 [History] Pantoprazole [Protonix] 40 mg PO BID 02/25/16 [History] Albuterol Sulfate [Proair Respiclick] 90 mcg IH Q4H PRN 02/26/16 [History] Carvedilol [Coreg] 3.125 mg PO BID 02/26/16 [History] Cyanocobalamin (Vitamin B-12) [B-12] 500 mcg PO DAILY 02/26/16 [History] Metolazone [Zaroxolyn] 5 mg PO BID #10 tablet 02/26/16 [Rx] Niacin 1,000 mg PO DAILY 02/26/16 [History] Forms: ED Department Discharge - Discharge Summary/Plan Comment DC Time >30 min.: Yes Discharge Summary/Plan Comment: Counseled on recent changes with worsening Troponins and renal function. We will transfer to [facility] under care of Dr. Middleton with consult of Nephro and Cardio. - Patient Data Vitals - Most Recent: Last Vital Signs Temp 39.1 C H 08/02/17 08:00 Pulse 107 H 08/02/17 08:00 Resp 27 H 08/02/17 08:00 BP 138/58 L 08/02/17 08:00 Pulse Ox 96 08/02/17 08:00 Weight - Most Recent: 92.442 kg I&O - Last 24 hours: Intake & Output 08/02/17 08/02/17 08/02/17 06:59 14:59 22:59 Intake Total 500 Output Total 775 Balance -275 Lab Results - Last 24 hrs: Laboratory Results - last 24 hr 08/01/17 08/02/17 08/02/17 Range/Units 17:34 07:30 07:30 WBC 11.6 H (4.0-11.0) K/uL RBC 3.56 L (4.50-6.50) M/uL Hgb 9.5 L (13.0-18.0) g/dL Hct 30.6 L (40.0-54.0) % MCV 86 (76-96) fL MCH 26.7 L (27.0-32.0) pg MCHC 31.0 (31.0-35.0) g/dL RDW 20.4 H (11.0-16.0) % Plt Count 263 (150-400) K/uL MPV 10.9 H (6.0-10.0) fL Neut % (Auto) 73.5 H (45.0-70.0) % Lymph % (Auto) 6.3 L (20.0-40.0) % [place] % (Auto) 19.9 H (3.0-10.0) % Eos % (Auto) 0.1 L (1.0-5.0) % Baso % (Auto) 0.2 (0.0-0.5) % Neut # (Auto) 8.51 H (2.00-7.50) K/uL Lymph # (Auto) 0.73 L (1.50-4.00) K/uL [place] # (Auto) 2.30 H (0.20-0.80) K/uL Eos # (Auto) 0.01 L (0.04-0.40) K/uL Baso # (Auto) 0.02 (0.02-0.10) K/uL Sodium 137 (136-145) mmol/L Potassium 2.7 L* (3.5-5.1) mmol/L Chloride 93 L (98-107) mmol/L Carbon Dioxide 36.2 H (21.0-32.0) mmol/L Anion Gap 10.5 (5.0-15.0) mmol/L BUN 42 H D (8-26) mg/dL Creatinine 2.09 H (0.70-1.30) mg/dL Est Cr Clr Drug Dosing TNP Estimated GFR (MDRD) 31 L (>60) MLS/MIN BUN/Creatinine Ratio 20.1 (6-25) Glucose 174 H (74-100) mg/dL POC Glucose 196 H (74-110) mg/dL Calcium 8.8 (8.5-10.1) mg/dL Total Bilirubin 0.5 (0.0-1.0) mg/dL AST 40 H (15-37) U/L ALT 54 (12-78) U/L Alkaline Phosphatase 74 (46-116) U/L Troponin I 0.546 H* (0.000-0.060) ng/mL Total Protein 7.1 (6.4-8.2) g/dL Albumin 2.7 L (3.4-5.0) g/dL Globulin 4.4 H (2.2-4.2) g/dL Albumin/Globulin Ratio 0.6 L (0.8-2.0) REBEKAH Results - Last 24 hrs: Microbiology 08/02/17 10:06 Gram Stain - Final Blood - Arm, Left Med Orders - Current: Current Medications Acetaminophen (Tylenol) 650 mg PO Q6H PRN PRN Reason: Fever Last Admin: 08/02/17 07:51 Dose: 650 mg Hydrocodone Bitart/Acetaminophen ([place] 325-5 Mg) 1 tab PO Q4H PRN PRN Reason: Pain Albuterol/Ipratropium (Duoneb 3.0-0.5 Mg/3 Ml) 3 ml NEB Q4H PRN PRN Reason: Shortness of Breath Apixaban (Eliquis) 5 mg PO BID [facility] Last Admin: 08/02/17 07:47 Dose: 5 mg Aspirin (Halfprin) 81 mg PO DAILY [facility] Last Admin: 08/02/17 07:44 Dose: 81 mg Atorvastatin Calcium (Lipitor) 20 mg PO BEDTIME [facility] Last Admin: 08/01/17 19:21 Dose: 20 mg Budesonide (Pulmicort) 0.5 mg NEB BID@0700,1900 [facility] Last Admin: 08/02/17 06:16 Dose: 0.5 mg Carvedilol (Coreg) 6.25 mg PO BID [facility] Last Admin: 08/02/17 07:44 Dose: 6.25 mg Clopidogrel Bisulfate (Plavix) 75 mg PO DAILY [facility] Last Admin: 08/02/17 07:44 Dose: 75 mg Diltiazem HCl (Cardizem Cd) 180 mg PO DAILY [facility] Last Admin: 08/02/17 07:40 Dose: 180 mg Ferrous Sulfate (Ferrous Sulfate) 325 mg PO DAILY [facility] Last Admin: 08/02/17 07:40 Dose: 325 mg Furosemide (Lasix) 80 mg PO BID [facility] Last Admin: 08/02/17 07:40 Dose: 80 mg Sodium Chloride (Normal Saline) 1,000 mls @ 0 mls/hr IV ASDIRECTED [facility] PRN Reason: KVO Ciprofloxacin/Dextrose 400 mg/ (Premix) 200 mls @ 200 mls/hr IV Q12HR [facility] Last Admin: 08/02/17 07:46 Dose: 200 mls/hr Metformin HCl (Glucophage) 1,000 mg PO BIDMEALS [facility] Metolazone (Zaroxolyn) 5 mg PO BID [facility] Last Admin: 08/02/17 07:37 Dose: 5 mg Montelukast Sodium (Singulair) 10 mg PO DAILY [facility] Last Admin: 08/02/17 07:44 Dose: 10 mg Nitroglycerin (Nitrostat) 0.4 mg SL ASDIRECTED PRN PRN Reason: Pain Non-Formulary Medication (Calcium Carb/Magnesium Oxid/D3 [Calcium Magnesium + D] ) 1 each PO DAILY [facility] Last Admin: 08/02/17 07:46 Dose: 1 each Non-Formulary Medication (Cholecalciferol (Vitamin D3) [Vitamin D3]) 2,000 unit PO BID [facility] Last Admin: 08/02/17 07:46 Dose: 5,000 unit Non-Formulary Medication (Cyanocobalamin (Vitamin B-12) [B-12]) 500 mcg PO DAILY [facility] Last Admin: 08/02/17 07:47 Dose: 500 mcg Non-Formulary Medication (Niacin [Niacin]) 1,000 mg PO DAILY [facility] Last Admin: 08/02/17 07:48 Dose: 1,000 mg Non-Formulary Medication (Potassium Citrate [Urocit-K]) 99 meq PO DAILY [facility] Last Admin: 08/02/17 07:48 Dose: 99 meq Ondansetron HCl (Zofran) 4 mg IVPUSH Q4H PRN PRN Reason: Nausea/Vomiting Pantoprazole Sodium (Protonix) 40 mg PO BID [facility] Last Admin: 08/02/17 07:40 Dose: 40 mg Sodium Chloride (Saline Flush) 10 ml FLUSH ASDIRECTED PRN PRN Reason: Keep Vein Open Last Admin: 08/01/17 02:32 Dose: 10 ml Discontinued Medications Albuterol (Ventolin Hfa) 0 gm INH Q4H PRN PRN Reason: Shortness of Breath Albuterol (Proventil Neb Soln) Confirm Administered Dose 2.5 mg .ROUTE .STK-MED ONE Stop: 08/01/17 18:48 Last Admin: 08/01/17 22:04 Dose: Not Given Albuterol (Proventil Neb Soln) 2.5 mg NEB Q4H PRN PRN Reason: Shortness of Breath Last Admin: 08/01/17 18:50 Dose: 2.5 mg Carvedilol (Coreg) 3.125 mg PO BID [facility] Last Admin: 08/01/17 11:51 Dose: 3.125 mg Cholecalciferol (Vitamin D3) Confirm Administered Dose 2,000 unit .ROUTE .STK- MED ONE Stop: 07/31/17 07:47 Last Admin: 07/31/17 19:39 Dose: 2,000 unit Cholecalciferol (Vitamin D3) Confirm Administered Dose 2,000 unit .ROUTE .STK- MED ONE Stop: 07/31/17 19:22 Last Admin: 08/01/17 00:28 Dose: 2,000 unit Cholecalciferol (Vitamin D3) Confirm Administered Dose 2,000 unit .ROUTE .STK- MED ONE Stop: 08/01/17 08:52 Last Admin: 08/01/17 14:19 Dose: Not Given Clindamycin Phosphate (Cleocin) Confirm Administered Dose 600 mg .ROUTE .STK- MED ONE Stop: 07/31/17 12:11 Last Admin: 07/31/17 12:18 Dose: Not Given Clindamycin Phosphate (Cleocin) Confirm Administered Dose 600 mg .ROUTE .STK- MED ONE Stop: 07/31/17 19:10 Last Admin: 07/31/17 19:14 Dose: Not Given Clindamycin Phosphate (Cleocin) Confirm Administered Dose 600 mg .ROUTE .STK- MED ONE Stop: 08/01/17 02:47 Last Admin: 08/01/17 03:17 Dose: 600 mg Cyanocobalamin (Vitamin B12) Confirm Administered Dose 1,000 mcg .ROUTE .STK- MED ONE Stop: 07/31/17 07:47 Last Admin: 08/01/17 09:00 Dose: 1,000 mcg Cyanocobalamin (Vitamin B12) Confirm Administered Dose 1,000 mcg .ROUTE .STK- MED ONE Stop: 08/01/17 08:53 Last Admin: 08/01/17 15:50 Dose: Not Given Diltiazem HCl (Diltiazem) 25 mg IVPUSH ONETIME ONE Stop: 07/31/17 20:44 Last Admin: 08/01/17 00:28 Dose: 10 mg Diltiazem HCl (Diltiazem) 25 mg IVPUSH ONETIME ONE Stop: 07/31/17 10:31 Last Admin: 08/01/17 02:08 Dose: Not Given Diltiazem HCl (Cardizem Cd) Confirm Administered Dose 120 mg .ROUTE .STK-MED ONE Stop: 08/01/17 01:52 Last Admin: 08/01/17 02:08 Dose: 120 mg Diltiazem HCl (Cardizem) 15 mg IVPUSH ONETIME ONE Stop: 08/01/17 02:43 Last Admin: 08/01/17 01:25 Dose: 15 mg Diltiazem HCl (Diltiazem) 15 mg IVPUSH ONETIME PRN PRN Reason: Tachycardia Furosemide (Lasix) Confirm Administered Dose 40 mg .ROUTE .STK-MED ONE Stop: 07/31/17 19:45 Last Admin: 08/01/17 00:28 Dose: Not Given Clindamycin Phosphate 600 mg/ (Dextrose/Water) 54 mls @ 150 mls/hr IV Q8H [facility] Last Admin: 08/01/17 10:53 Dose: 150 mls/hr Non-Formulary Medication (Nf Drug) 5 each PO BID [place] Last Admin: 08/01/17 09:02 Dose: 5 each Ondansetron HCl (Zofran) Confirm Administered Dose 4 mg .ROUTE .ST-MED ONE Stop: 08/01/17 19:13 Last Admin: 08/01/17 19:20 Dose: 4 mg *Q Meaningful Use (DIS) - VTE *Q VTE Criteria *Q: - Stroke *Q Stroke Criteria *Q: - AMI *Q AMI Criteria *Q:
== END 2017-08-02 12:25 | DRG 872 ==
LOC: LB.ED 17:21 → LB.MS 18:54 → UNDOADMIN 18:57 → LB.MS 18:57 → UNDOADMIN 19:10 → LB.MS 19:10
PROVIDERS: ADMIT Family Medicine; ATTEND Family Medicine
DX: A41.4 Sepsis due to anaerobes (principal); I13.0 Hypertensive heart and chronic kidney disease with heart failure and stage 1 through stage 4 chronic kidney disease, or unspecified chronic kidney disease; I42.9 Cardiomyopathy, unspecified; N17.9 Acute kidney failure, unspecified; N18.4 Chronic kidney disease, stage 4 (severe); B96.1 Klebsiella pneumoniae [K. pneumoniae] as the cause of diseases classified elsewhere; I48.91 Unspecified atrial fibrillation; I50.9 Heart failure, unspecified; E11.22 Type 2 diabetes mellitus with diabetic chronic kidney disease; Z79.01 Long term (current) use of anticoagulants; Z87.891 Personal history of nicotine dependence; R74.8 Abnormal levels of other serum enzymes; R06.02 Shortness of breath; D72.829 Elevated white blood cell count, unspecified; R50.9 Fever, unspecified; R09.02 Hypoxemia; Z85.828 Personal history of other malignant neoplasm of skin; I25.2 Old myocardial infarction; H54.7 Unspecified visual loss; Z95.5 Presence of coronary angioplasty implant and graft; Z87.440 Personal history of urinary (tract) infections; Z79.82 Long term (current) use of aspirin; Z88.1 Allergy status to other antibiotic agents; Z88.0 Allergy status to penicillin
CPT/HCPCS: 36415; 71010; 80048; 80053; 81001; 82962; 83605; 83880; 84484; 85025; 85610; 87040; 87077; 87086; 87088; 87186; 87205; 93005; 99285-25; A0425; A0429; A9270-GY; J0744; J2405; J3490; J7050; J7060; J7626; S0077

== ENCOUNTER 2017-11-11 14:14 | Emergency (ER) | payer MEDICARE, BC ==
--- NOTE | 2017-11-11 14:51 | EDM.PDOC ---
ED HPI GENERAL MEDICAL PROBLEM - General Chief Complaint: Gastrointestinal Problem Stated Complaint: rectal bleed Time Seen by Provider: 11/11/17 14:46 Source of Information: Reports: Patient, Family, RN History Limitations: Reports: No Limitations - History of Present Illness INITIAL COMMENTS - FREE TEXT/NARRATIVE: 77 yr male presents with blood from rectal area. States around noon he started having rectal bleeding. States history of rectal hemorroid and was noted on colonoscopy about 2 years ago. States he hasn't had anything done to this in the past. States the bleeding has gone through a wash cloth and onto his chair and onto a plastic bag on seat. - Related Data Allergies Allergy/AdvReac Type Severity Reaction Status Date / Time Penicillins Allergy Severe Anaphylactic Verified 06/08/17 02:02 Shock vancomycin AdvReac Mild Hypertensio Verified 06/08/17 02:02 n Home Meds: Home Meds Montelukast Sodium [Singulair] 10 mg PO DAILY 07/30/13 [History] Nitroglycerin [Nitrostat] 0.4 mg SL ASDIRECTED PRN 07/30/13 [History] Ferrous Sulfate 325 mg PO DAILY 09/21/13 [History] Furosemide 40 mg PO BID 09/21/13 [History] atorvaSTATin [Lipitor] 20 mg PO BEDTIME 09/21/13 [History] Calcium Carb/Magnesium Oxid/D3 [Calcium Magnesium + D] 1 each PO DAILY 12/25/14 [History] Cholecalciferol (Vitamin D3) [Vitamin D-3] 2,000 unit PO BID 12/25/14 [History] Potassium Citrate [Urocit-K] 99 meq PO DAILY 12/25/14 [History] Amiodarone [Cordarone] 200 mg PO DAILY 02/25/16 [History] Apixaban [Eliquis] 5 mg PO BID 02/25/16 [History] Aspirin [Ecotrin] 81 mg PO DAILY 02/25/16 [History] Hydrocodone/Acetaminophen [[place] 7.5-325] 1 tab PO Q4H PRN 02/25/16 [History] Pantoprazole [Protonix] 40 mg PO BID 02/25/16 [History] Albuterol Sulfate [Proair Respiclick] 90 mcg IH Q4H PRN 02/26/16 [History] Carvedilol [Coreg] 3.125 mg PO BID 02/26/16 [History] Cyanocobalamin (Vitamin B-12) [B-12] 500 mcg PO DAILY 02/26/16 [History] Metolazone [Zaroxolyn] 5 mg PO BID #10 tablet 02/26/16 [Rx] Niacin 1,000 mg PO DAILY 02/26/16 [History] Past Medical History HEENT History: Reports: Impaired Vision Cardiovascular History: Reports: Afib, Bypass, Cardiomyopathy, Heart Failure, High Cholesterol, Hypertension, [place], SOB on Exertion, Stents Respiratory History: Reports: COPD, Sleep Apnea, SOB Gastrointestinal History: Reports: GI Bleed Genitourinary History: Reports: UTI, Recurrent Endocrine/Metabolic History: Reports: Diabetes, Type II Hematologic History: Reports: Anemia, Blood Transfusion(s) Oncologic (Cancer) History: Reports: Other (See Below) Other Oncologic History: skin - Past Surgical History Cardiovascular Surgical History: Reports: Coronary Artery Stent GI Surgical History: Reports: Cholecystectomy, Colonoscopy, Hernia, Inguinal Social & Family History - Family History Family Medical History: Unobtainable - Tobacco Use Smoking Status *Q: Never Smoker Years of Tobacco use: 30 Used Tobacco, but Quit: Yes Month/Year Tobacco Last Used: 2014 Second Hand Smoke Exposure: No - Caffeine Use Caffeine Use: Reports: None - Alcohol Use Days Per Week of Alcohol Use: 0 - Recreational Drug Use Recreational Drug Use: No - Living Situation & Occupation Living situation: Reports: Occupation: Retired ED ROS GENERAL - Review of Systems Review Of Systems: See Below Constitutional: Reports: No Symptoms HEENT: Reports: Glasses Respiratory: Reports: No Symptoms Cardiovascular: Reports: Other (hx of bypass in past, does take eliquis and Plavix. States the Eliquis was decreased about 1-2 months ago.). Denies: Chest Pain, Edema Endocrine: Reports: Other (diabetes) GI/Abdominal: Reports: Other (last BM was this am, states he didn't strain this am. hemorrhoid). Denies: Abdominal Pain, Hematochezia (Started around 12 noon today.), Melena : Reports: Other (some difficulty with urination) Musculoskeletal: Reports: No Symptoms Skin: Reports: No Symptoms Neurological: Reports: No Symptoms Psychiatric: Reports: No Symptoms ED EXAM, GI/ABD - Physical Exam Exam: See Below Exam Limited By: No Limitations General Appearance: Alert, No Apparent Distress Ears: Hearing Loss, Other (hearing aides) Nose: Normal Inspection Throat/Mouth: Normal Voice, No Airway Compromise Head: Atraumatic, Normocephalic Neck: Supple, Non-Tender Respiratory/Chest: No Respiratory Distress, Lungs Clear, Normal Breath Sounds Cardiovascular: Regular Rate, Rhythm, No Edema GI/Abdominal Exam: Normal Bowel Sounds, Soft, Non-Tender (Male) Exam: Deferred Rectal (Males) Exam: Hemorrhoids (several small, on top of each other), Other ( rectal clot). No: Perirectal Abscess, Rectal Fissure Extremities: Normal Inspection, Normal Range of Motion Neurological: Alert, Oriented, Normal Cognition Psychiatric: Normal Affect, Normal Mood Course - Vital Signs Last Recorded V/S: Last Vital Signs Temp 99.2 F 11/11/17 15:04 Pulse 52 L 11/11/17 15:04 Resp 18 11/11/17 15:04 BP 137/41 L 11/11/17 15:04 Pulse Ox 100 11/11/17 15:04 - Orders/Labs/Meds Labs: Laboratory Tests 11/11/17 Range/Units 15:10 WBC 10.8 (4.0-11.0) K/uL RBC 3.43 L (4.50-6.50) M/uL Hgb 8.8 L (13.0-18.0) g/dL Hct 29.9 L (40.0-54.0) % MCV 87 (76-96) fL MCH 25.7 L (27.0-32.0) pg MCHC 29.4 L (31.0-35.0) g/dL RDW 19.0 H (11.0-16.0) % Plt Count 402 H D (150-400) K/uL MPV 9.3 (6.0-10.0) fL Neut % (Auto) 74.7 H (45.0-70.0) % Lymph % (Auto) 12.1 L (20.0-40.0) % [place] % (Auto) 10.9 H (3.0-10.0) % Eos % (Auto) 1.7 (1.0-5.0) % Baso % (Auto) 0.6 H (0.0-0.5) % Neut # (Auto) 8.06 H (2.00-7.50) K/uL Lymph # (Auto) 1.31 L (1.50-4.00) K/uL [place] # (Auto) 1.18 H (0.20-0.80) K/uL Eos # (Auto) 0.18 (0.04-0.40) K/uL Baso # (Auto) 0.06 (0.02-0.10) K/uL - Re-Assessments/Exams Free Text/Narrative Re-Assessment/Exam: 11/11/17 16:21 CBC completed and reviewed with pt. Examined pt on right side for rectal bleeding. Consult with CAROL ANN Alexis and examined area. One clot about 2X2 cm removed from rectum. No more active bleeding noted after clot removed. 4X4 qauze applied and packed to area. ABD applied and ice pack. Pt assisted to sitting in wheelchair. Hgb 8.8 and last Hgb was 8.9. Instructed on care of hemorrhoid and use of OTC preparation H up to 4x/day and use pea sized amount and no introduction of suppository or enema into rectum. Keep area clean. Diet and fiber to keep stool soft to pasty. Surgery consult will be made for pt. Recommend rest today, fluids to prevent dehydration. Return to ER if active bleeding starts or persists. Pt and state understanding. 11/11/17 16:29 Referral to surgeon. Pt agreeable to consult with surgeon, from [facility], at [facility]. Departure - Departure Time of Disposition: 16:27 Disposition: Home, Self-Care 01 Condition: Good Clinical Impression: Hemorrhoid - Discharge Information Instructions: Hemorrhoids, [id number] Referrals: Sonido Baca MD [Primary Care Provider] - Soto Thomas MD [Physician] - Forms: ED Department Discharge Care Plan Goals: Use preparation H as needed up to 4 times a day. Return to clinic or hospital as needed.
[2017-11-11 15:03] VITALS: BP 137/41
== END 2017-11-11 16:35 | disposition home or self-care (01) ==
LOC: LB.ED 14:14
DX: K64.9 Unspecified hemorrhoids (principal); I11.0 Hypertensive heart disease with heart failure; I50.9 Heart failure, unspecified; J44.9 Chronic obstructive pulmonary disease, unspecified; E11.9 Type 2 diabetes mellitus without complications; Z87.891 Personal history of nicotine dependence; Z88.1 Allergy status to other antibiotic agents; Z88.0 Allergy status to penicillin; Z79.899 Other long term (current) drug therapy
CPT/HCPCS: 36415; 85025; 99283